=== PATIENT | male | born 1965 | race Caucasian/White ===

== ENCOUNTER 2016-12-08 00:38 | Inpatient (IN) | payer OTHER ==
[~2016-12-08] VITALS: Ht 180.3 cm; Wt 103.1 kg
[~2016-12-08 00:38] MED LIST: AUGMENTIN 875 M1 TAB PO; AUGMENTIN 875-1 EACH PO; CIPRO 500MG TA500 MG PO; FLEXERIL10 MG PO; FUROSEMIDE20 MG PO; GABAPENTIN300 MG PO; LEXAPRO5 MG PO; NAPROXEN500 MG PO; PANTOPRAZOLE SO40 MG PO; PERCOCET 325 MG1 TA2 PO; PYRIDIUM200 MG PO; SEROQUEL (MONO200 MG PO; SEROQUEL 100MG100 MG PO; SEROQUEL 25MG T25 MG PO; TRAZODONE100 MG PO; TRAZODONE50 MG PO; WELLBUTRIN XL300 MG PO
--- NOTE | 2016-12-08 00:39 | NUR ---
PT BIBA S/P "DRINKING AND TAKING A BUNCH OF PILLS". PER EMS PT ADMITS TO TAKING 20-30 TRAZADONE AND LITHIUM, WELL DRINKING ALCOHOL TONIGHT. PT CALLED [address] H[address] AND PD WAS THEN CALLED. PT ARRIVES CONFUSED, SLURRED SPEECH, ABLE TO FOLLOW COMMANDS APPROPRIATELY.
--- NOTE | 2016-12-08 00:40 | NUR ---
PT PLACED ON JOINT SPECIAL OPERATIONS, NSR. PT O2 SAT ON ROOM AIR 89%. PLACED ON 2L UP TO 94%.
--- NOTE | 2016-12-08 00:42 | NUR ---
SECURITY AT BEDSIDE FOR WANDING
--- NOTE | 2016-12-08 00:58 | ED PSYCHIATRIC COMPLAINT ---
History of Present Illness General Chief Complaint: ETOH/Drug Related Complaint Stated Complaint: BIBA FOR OD, SI ATTEMPT Source: patient, EMS Exam Limitations: clinical condition Vital Signs & Intake/Output Vital Signs & Intake/Output Vital Signs Date Time Temp Pulse Resp B/P B/P Pulse O2 O2 Flow FiO2 Mean Ox Delivery Rate 12/08 925 96.8 97 18 122/64 94 Room Air 12/08 0654 97.6 87 18 120/73 93 Room Air 12/08 0434 94 16 129/79 95 Nasal 2.0L Cannula 12/08 0318 97 18 115/63 95 Nasal 2.0L Cannula 12/08 0131 94 Nasal 2.0L Cannula 12/08 0039 96.9 98 16 122/75 96 Room Air Allergies Coded Allergies: NO KNOWN ALLERGIES (02/06/14) Reconcile Medications Amoxicillin/Potassium Clav (Augmentin 875-125 Tablet) 1 EACH TABLET 1 TAB PO BID PRN cellulitis AMOXICILLIN/POTASSIUM CLAV (Augmentin 875-125 Tablet) 875 MG/125 MG TAB 1 TAB PO BID Cellulitis Escitalopram Oxalate (Lexapro) 5 MG TAB 1 TAB PO DAILY Mental health Furosemide 20 MG TAB 1 TAB PO DAILY WATER RETENTION (Reported) Gabapentin 300 MG CAPSULE 2 CAP PO TID PAIN CONTROL (Reported) Naproxen 500 MG TAB 1 TAB PO BID PAIN (Reported) OXYCODONE HCL/ACETAMINOPHEN (Percocet 5-325 MG Tablet) 325 MG/5 MG TAB 1 TAB PO Q8 PRN PAIN SCALE 5-10 Pantoprazole Sodium 40 MG TABLET.DR 1 TAB PO DAILY ACID REFLUX (Reported) Quetiapine Fumarate (Seroquel) 25 MG TAB 1 TAB PO 0900,1700 MENTAL HEALTH Quetiapine Fumarate (Seroquel) 100 MG TAB 1 TAB PO AT BEDTIME Mental health TRAZODONE HCL (Trazodone HCl) 50 MG TAB 1 TAB PO AT BEDTIME Insomnia Triage Nurses Notes Reviewed? yes Onset: Abrupt Duration: unknown duration Timing: single episode today Severity: moderate, severe Associated Symptoms: anxiety, suicidal ideation HPI: 51 year old male presents via EMS for overdose on trazadone, lithium, alcohol. He took a few percocets in an attempt to kill himself. He states he was talking to 211 about how he was feeling and then EMS showed up. History of previous suicide attmpt in the past. (LEIF DERAS MD) Past History Travel History Traveled to [place] past 21 day No Medical History Any Pertinent Medical History? 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 No (LEIF DERAS MD) Review of Systems Review of Systems Constitutional: Reports: see HPI (LIMITED PER CONDITION). EENTM: Reports: no symptoms. Respiratory: Reports: no symptoms. Cardiovascular: Reports: no symptoms. GI: Reports: no symptoms. Genitourinary: Reports: no symptoms. Musculoskeletal: Reports: no symptoms. Skin: Reports: no symptoms. Neurological/Psychological: Reports: depressed, emotional problems. Hematologic/Endocrine: Reports: no symptoms. Immunologic/Allergic: Reports: no symptoms. All Other Systems: Reviewed and Negative (LEIF DERAS MD) Physical Exam Physical Exam General Appearance: well developed/nourished, mild distress, intoxicated Head: atraumatic Eyes: Bilateral: PERRL, EOMI. Ears, Nose, Throat: normal pharynx, normal ENT inspection, hearing grossly normal Neck: normal inspection, supple Respiratory: normal breath sounds Cardiovascular: regular rate/rhythm Gastrointestinal: soft, non-tender Extremities: normal range of motion Neurological/Psychiatric: no motor/sensory deficits, LETHARGIC Appearance/Memory/Insight: disheveled, impaired insight Behavoir/Eye Contact/Speech: decreased rate of speech Thoughts/Hallucinations: no apparent hallucination Skin: intact, normal color, warm/dry SAD PERSONS SAD PERSONS Response Value Male Sex? yes 1 Age <19 or >45 years? yes 1 Depression/Hopelessness? yes 2 Previous Attempts/Psych Care yes 1 Excessive Ethanol/Drug Use? yes 1 Rational Thinking Loss? yes 2 Organized/Serious Attempt yes 2 Social Support? has no support 1 Total 11 SAD PERSONS Done? yes (LEIF DERAS MD) Progress Differential Diagnosis: DEPRESSION, ANXIETY, OVERDOSE, SUICIDE ATTEMPT Plan of Care: Orders Procedure Date/time Status Regular Diet 12/08 L Active Regular Diet 12/08 B Complete Admit to inpatient psych 12/08 1112 Active ED CRISIS PSYCH CONSULT 12/08 0142 Active Add-on Test (ER Only) 12/08 137 Active Add-on Test (ER Only) 12/08 132 Active ACETOMINOPHEN 12/09 127 Complete SALICYLATE 12/09 127 Complete LITHIUM 12/09 127 Complete Continuous Observation Monitor 12/08 57 Active URINE DRUGS OF ABUSE 12/08 57 Complete ETHANOL 12/08 57 Complete COMPREHENSIVE METABOLIC PANEL 12/08 57 Complete CBC WITHOUT DIFFERENTIAL 12/08 57 Complete EKG 12/08 57 Active Laboratory Tests 12/08/16127: Urine Opiates Screen < 100.00, Methadone Screen < 40, Barbiturate Screen < 60, Ur Phencyclidine Scrn < 6.00, Amphetamines Screen < 100, U Benzodiazepines Scrn < 85, Urine Cocaine Screen < 50, Urine Cannabis Screen 15.40 12/08/16 012: Anion Gap 18 H, Estimated GFR > 60, BUN/Creatinine Ratio 10.0, Glucose 128 H, Calcium 8.9, Total Bilirubin 0.3, AST 37, ALT 40, Alkaline Phosphatase 79, Total Protein 6.5, Albumin 4.3, Globulin 2.2, Albumin/Globulin Ratio 2.0, CBC w Diff NO MAN DIFF REQ, RBC 5.03, MCV 87.0, MCH 29.3, RDW 14.4, MPV 8.6, Gran % 64.4, Lymphocytes % 24.9, Monocytes % 6.9, Eosinophils % 2.8, Basophils % 1.0, Absolute Granulocytes 5.9, Absolute Lymphocytes 2.3, Absolute Monocytes 0.6, Absolute Eosinophils 0.3, Absolute Basophils 0.1, PUBS MCHC 33.7, Salicylates < 1.0, Acetaminophen < 10.0 L, [place] < 0.2 L, Serum Alcohol 254.0 Initial ED EKG: NSR, PVC Hand-Off Endorsed To: ZACH LOWE,PAOLA Cho Endorsed Time: 07 Pending: consult (CRISIS) (LEIF DERAS MD) Departure Departure Disposition: STILL A PATIENT Condition: Stable Clinical Impression Primary Impression: Suicide attempt Secondary Impressions: Overdose Referrals: RHINA LOWE,WU (PCP/Family) Departure Forms: Customer Survey General Discharge Information (BRAEDEN LOWE,LEIF) Psych Admission Note Psychiatric Admission: I have seen and evaluated DEMETRIS AUGUSTIN. I have also reviewed all the pertinent lab results and diagnostic results. DEMETRIS AUGUSTIN will be admitted to our inpatient Psychiatric unit for treatment and care. (ZACH LOWE,PAOLA Cho)
--- NOTE | 2016-12-08 01:20 | NUR ---
EKG IN PROGRESS
--- NOTE | 2016-12-08 01:30 | NUR ---
BLOOD OBTAINED AND SENT TO LAB -SST,LAV,BLUE URINE TRIO OBTAINED AND SENT TO LAB
[2016-12-08 01:38] LABS: ABSOLUTE BASOPHIL COUNT 0.1 /CUMM (0.0-0.2); ABSOLUTE EOSINOPHIL COUNT 0.3 /CUMM (0.0-0.7); ABSOLUTE GRANULOCYTE CT 5.9 /CUMM (1.4-6.5); ABSOLUTE LYMPH COUNT 2.3 /CUMM (1.2-3.4); ABSOLUTE MONOCYTE COUNT 0.6 /CUMM (0.10-0.60); EOSINOPHIL % 2.8 % (0-5); GRANULOCYTE % 64.4 % (42.2-75.2); HEMATOCRIT 43.8 % (42-52); MEAN CORPUSCULAR HGB 29.3 PG (27.0-31.0); MEAN CORPUSCULAR HGB CONC 33.7 G/DL (33.0-37.0); MEAN PLATELET VOLUME 8.6 FL (7.4-10.4); PLATELET COUNT 299 /CUMM (130-400); RBC DISTRIBUTION WIDTH 14.4 % (11.5-14.5); RED BLOOD CELL CT 5.03 /CUMM (4.70-6.10); WHITE BLOOD CELL COUNT 9.2 /CUMM (4.8-10.8)
--- NOTE | 2016-12-08 01:38 | NUR ---
PT MEDICATED WITH 0.4MG NARCAN PER EMAR
--- NOTE | 2016-12-08 02:15 | NUR ---
PT MEDICATED WITH NS INFUSING PER EMAR
[2016-12-08 02:17] LABS: LITHIUM < 0.2 mmol/L (0.6-1.2)
--- NOTE | 2016-12-08 05:00 | NUR ---
PT CHANGED INTO GOWN DUE TO NO SCRUB BOTTOMS BEING AVAILABLE AT THIS TIME.
--- NOTE | 2016-12-08 05:22 | NUR ---
PT REMAINS ASLEEP AT THIS TIME W/RR NOTED. SITTER IN ATTENDANCE. WILL CTM.
--- NOTE | 2016-12-08 07:40 | NUR ---
PT SLEEPING ON STRETCHER IN HALLWAY. SITTER IN ATTENDANCE.
--- NOTE | 2016-12-08 08:33 | NUR ---
PT SLEEPING, REG RR NOTED SITTER IN ATTENDANCE.
--- NOTE | 2016-12-08 11:40 | NUR ---
RECEIVED REPORT ON PT AND NOTED TO BE RESTING ON STRETCHER AND OFFERED LUNCH WHICH PT IS EATING AT PRESENT. PT DENIES ANY COMPLAINTS AT PRESENT AND INFORMED OF POC.
--- NOTE | 2016-12-08 11:57 | NUR ---
PT IS BEEN EVALUATED BY CLASSROOM PARAPROFESSIONAL
--- NOTE | 2016-12-08 14:02 | ED PSYCH CRISIS CONSULTATION ---
Crisis Consult Basic Assessment Date of Consult: 12/08/16 Responsible Person/Accompanied By: Self Insurance Authorization: Insurance #1: Insurance name: ASA HUMPHREY Phone number: Policy number: [id number] Group number: Authorization number: [id number] Pended Auth [id number] Requested from 12/08/16 ED Provider: Patient's ED Provider: BRAEDEN LOWE,LEIF Primary Care Physician: Patient's PCP: WU LANTIGUA MD PCP's Current Psychiatrist: Unknown Chief Complaint: Psychiatric complaint Patient's Quote: "I felt I might as well kill myself." Present Illness: 51 M presents via EMS for overdose on trazodone, lithium and alcohol; "also a few percocets." He presented at 0039 on 12/08/16. He reports he took 20-30 pills early in the evening, but does not recall how many of each. He had lithium from an old prescription and no longer has this prescribed. His lithium urine toxicology shows 0.2 on 12/08/16 at 0128. The patient reports that his "demon" was telling him to kill himself, and the only way to quiet the demon is it kill himself. He has been feeling despondent about his living arrangement, living in his niece's garage. The patient has a long history of suicide attempts beginning at age 16, when he was hospitalized at [facility] by his parents. Alcohol use disorder in remission for 3 months, but reports that he began drinking 3 days ago. He admits to cannabis use. Remote history of cocaine and inhaled heroin use, both in remission. The patient had recently had a change in antipsychotic to Rexulti, but did not start it yet. He has been off his medications, not taking them as ordered. He reports that he is a "stockpiler of meds; I have hundreds of Seroquel at home." This medication had been stopped previously by his provider. He reports he had been writing a journal, which he admits has suicidal statements in it. He is homeless, and has been working with [facility], at [address] [place] [id number]; , for housing and job placement. His vocational specialist at [facility], cancelled the appointment scheduled for today, 12/08/16. He is estranged from his three surviving children, his father and his sister. Med claim history includes: As of 11/23/16, from Adolfo Yin at [facility] trazodone 150 mg PO at bedtime benztropine 1 mg PO daily Rexulti 1 mg PO daily for 7 days, then 2 mg PO daily hydroxyzine pamoate 50 mg #90 for 30 days bupropion XL 150 mg PO #90 for 30 days He also has Flexeril, nicotine patch, gabapentin 300 mg PO up to 3X/day from his PCP, Dr. Lantigua. Collateral call to his sister, Claribel; VM left, expect a return call. Collateral call to the patient's casemanager at [facility], Thomas Fried, [phone], who was advised that the patient has a large collection of discontinued medications in the garage where he stays. Mr. Fried will get mobile crisis team involved when discharge from [facility] is near. Patient's Address: Sister's address; the patient does not live here. [address] [place] [id number] Other Phone Number: Who Do You Live With? Other (see notes) Family/Informants Interviewed: Patient refuses to give the phone number of his niece, whose garage he lives in. TC placed to his sister, Claribel Baum, . M on blind mailbox, and requested a return call to Crisis. Allergies - Coded Allergies: NO KNOWN ALLERGIES (02/06/14) Current Medications - Scheduled Medications AMOXICILLIN/POTASSIUM CLAV (Augmentin 875-125 Tablet) 875 MG/125 MG TAB 1 TAB PO BID Cellulitis #14 TAB Prescribed by SANDRINE PATRICK on 06/20/15 Escitalopram Oxalate (Lexapro) 5 MG TAB 1 TAB PO DAILY Mental health #7 TAB Prescribed by SANDRINE PATRICK on 06/20/15 Furosemide 20 MG TAB 1 TAB PO DAILY WATER RETENTION (Reported) Entered as Reported by CARISSA TRACY on 06/17/15 1606 Last Taken: At an unknown date and time Gabapentin 300 MG CAPSULE 2 CAP PO TID PAIN CONTROL #180 (Reported) Entered as Reported by LIZZ MASTERS on 02/05/140 Last Taken: At an unknown date and time Naproxen 500 MG TAB 1 TAB PO BID PAIN (Reported) Entered as Reported by CARISSA TRACY on 06/17/15 1605 Last Taken: At an unknown date and time Pantoprazole Sodium 40 MG TABLET.DR 1 TAB PO DAILY ACID REFLUX #30 (Reported) Entered as Reported by LIZZ MASTERS on 02/05/142138 Last Taken: At an unknown date and time Quetiapine Fumarate (Seroquel) 25 MG TAB 1 TAB PO 0900,1700 MENTAL HEALTH #14 TAB Prescribed by SANDRINE PATRICK on 06/20/15 Quetiapine Fumarate (Seroquel) 100 MG TAB 1 TAB PO AT BEDTIME Mental health #7 TAB Prescribed by SANDRINE PATRICK on 06/20/15 TRAZODONE HCL (Trazodone HCl) 50 MG TAB 1 TAB PO AT BEDTIME Insomnia #7 TAB Prescribed by SANDRINE PATRICK on 06/20/15 Scheduled PRN Medications Amoxicillin/Potassium Clav (Augmentin 875-125 Tablet) 1 EACH TABLET 1 TAB PO BID PRN cellulitis #20 TAB Prescribed by DARLIN SOLORZANO on 10/23/15 OXYCODONE HCL/ACETAMINOPHEN (Percocet 5-325 MG Tablet) 325 MG/5 MG TAB 1 TAB PO Q8 PRN PAIN SCALE 5-10 #20 TAB Prescribed by SANDRINE PATRICK on 06/20/15 Laboratory Results: Laboratory Tests 12/08/16127: Urine Opiates Screen < 100.00, Methadone Screen < 40, Barbiturate Screen < 60, Ur Phencyclidine Scrn < 6.00, Amphetamines Screen < 100, U Benzodiazepines Scrn < 85, Urine Cocaine Screen < 50, Urine Cannabis Screen 15.40 12/08/16127: Anion Gap 18 H, Estimated GFR > 60, BUN/Creatinine Ratio 10.0, Glucose 128 H, Calcium 8.9, Total Bilirubin 0.3, AST 37, ALT 40, Alkaline Phosphatase 79, Total Protein 6.5, Albumin 4.3, Globulin 2.2, Albumin/Globulin Ratio 2.0, CBC w Diff NO MAN DIFF REQ, RBC 5.03, MCV 87.0, MCH 29.3, RDW 14.4, MPV 8.6, Gran % 64.4, Lymphocytes % 24.9, Monocytes % 6.9, Eosinophils % 2.8, Basophils % 1.0, Absolute Granulocytes 5.9, Absolute Lymphocytes 2.3, Absolute Monocytes 0.6, Absolute Eosinophils 0.3, Absolute Basophils 0.1, PUBS MCHC 33.7, Salicylates < 1.0, Acetaminophen < 10.0 L, [place] < 0.2 L, Serum Alcohol 254.0 Past History Past Medical History Neurological: "SHORT TERM MEMORY FROM HEAD INJURIES IN PAST" EENT: NONE Cardiovascular: NONE Respiratory: pneumonia Gastrointestinal: HERNIA Hepatic: NONE Renal: NONE Musculoskeletal: NONE Psychiatric: alcohol dependence, anxiety, bipolar disease, substance abuse, SUICIDE ATTEMPTS psychotic disorder NOS Endocrine: NONE Blood Disorders: NONE Cancer(s): NONE 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 Outpatient at [facility]. 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 How much used/taken Over 3 days, one 12 packof beer and 4 Locos (23 oz of 12% malt liquor each) How often Sober for 3 months before 3 days ago Substance Abuse Treatment Substance Abuse Treatment Past Substance Abuse [place] Yes Inpatient Treatment No (Does not remember) Outpatient Treatment Yes Location of Treatment [facility] Current Mental Status Mental Status Orientation: Person, Place, Situation Affect: Depressed, Flat, Hopeless, Lonely, Sad Speech: Slurred, Soft Neuro-vegetative: Anhedonia, Appetite Decreased, Concentration Poor, Energy Decreased, Helpless, Loss of Interest, Sexual Interest Decreased, Sleep Disturbance Appearance Appearance- Dress/Hygiene: Disheveled Behaviors Thought Process: Disorganized, Flight of Ideas, Loose Association Thought Content: Auditory Hallucinations, Ideas of Reference, Paranoid, Thought Blocking Memory: Impaired Insight: Poor SI/HI Risk Assessment Past Suicidal Ideation/Attempts Yes Current Suicidal Ideation/Att Yes Past Homicidal Ideation/Att: No Current Homicidal Ideation/Attempts No Degree of Intent: States Intent Danger To: Self Gravely Disabled: Inability, Lack of Insight, Poor Impulse Control, Poor Judgment Risk Factors: history of suicide atmpts, SA/MH hospitalized, substance abuse, poor impulse control, lack of outcome concern, lives alone, male, limited support Lethality Ratin PTSD Checklist PTSD Score: PTSD Score: Response Value Disturbing memories,thoughts,images of stressful experience? Moderately 3 Disturbing dreams of stressful experience from past? Quite a bit 4 Suddenly acting/feeling as if reliving stressful experience? Quite a bit 4 Unpleasant feeling when reminded of stressful experience? Moderately 3 Physical reactions when reminded of stressful experience? Quite a bit 4 Avoid thinking/talking of stressful exp. to avoid reactions? Extremely 5 Avoid activities/situations that remind of stressful exp.? Moderately 3 Trouble remembering important parts of stressful experience? Not at all 1 Loss of interest in things that you used to enjoy? Extremely 5 Feeling distant or cut off from other people? Extremely 5 Feeling emotionally numb/unable to love those close to you? Extremely 5 Feeling as if your future will somehow be cut short? Not at all 1 Trouble falling or staying asleep? Quite a bit 4 Feeling irritable or having angry outbursts? Moderately 3 Having difficulty concentrating? Moderately 3 Being super alert or watchful on guard? A little bit 2 Feeling jumpy or easily startled? 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 He has a history of suicide attempts. He is psychotic. Type of IP Admission: Voluntary [facility] Referrals RHINA LOWE,WU (PCP/Family)
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
[2016-12-08 19:50] VITALS: BP 168/98
--- NOTE | 2016-12-08 21:08 | NUR ---
Patient admitted to CPS from ED. Patient alert and oriented to person, place, time and situation. Patient speech clear and coherent. Patient has contracted for safety while on the unit. Patient does report AH at times, currently does NOT endorse SI. Patient recounts of events leading to admission was very disorganized and pressured. Patient reports multiple history of attempting suicide. PAtient is currently homeless, unsure of housing upon discharge. Patient also reports a "stash" of medication in home unspecific of to where. Patient reports taking excessive does of trazodone, and no report of lithium use. Looking forward to assisting Nabil with mental health.
[2016-12-09] VITALS (9 sets, daily range): BP systolic 144–152; BP diastolic 85–96
[2016-12-09] MEDS ORDERED: REXULTI2 M1 PO (08:34)
[2016-12-09] MEDS ORDERED: WELLBUTRIN XL150 M2 PO (08:35)
[2016-12-09] MEDS ORDERED: VISTARIL50 M1 PO (08:36)
[2016-12-09] MEDS ORDERED: BENZTROPINE MESY1 M1 PO (08:38)
[2016-12-09] MEDS ORDERED: NICOTINE PATCH1 EAC3 (08:39)
--- NOTE | 2016-12-09 10:34 | Cons- Medical ---
General Information and HPI Consulting Request Date of Consult: 12/09/16 Requested By: DELMY LOWE,RENITA Norwood Reason for Consult: Medical H&P Source of Information: patient, old records Exam Limitations: no limitations History of Present Illness: 51 year old male with PMH Etoh abuse and depression is here with acute suicidality and depression. Patient states that he has been diagnosed with hypertension on and off but doesn't take any medicines regularly and was also told he has borderline diabetes. He says that he has chronic back pain and Dr. Espinoza has been giving him naproxen for this chronic back pain. He also says he has GERD and takes medications for the same. He says right now the only tissue that bothers him is the chronic back pain. All his psychiatric medications make him feel constipated. He denies chest pain, shortness of breath, cough, sputum. Allergies/Medications Allergies: Uncoded Allergies: Vinegar (Rash 12/08/16) Home Med List: Amoxicillin/Potassium Clav (Augmentin 875-125 Tablet) 1 EACH TABLET 1 TAB PO BID PRN cellulitis AMOXICILLIN/POTASSIUM CLAV (Augmentin 875-125 Tablet) 875 MG/125 MG TAB 1 TAB PO BID Cellulitis Benztropine Mesylate 1 MG TABLET 1 MG PO DAILY MENTAL HEALTH (Reported) Brexpiprazole (Rexulti) 2 MG TABLET 1 TAB PO DAILY MENTAL HEALTH (Reported) Bupropion HCl (Wellbutrin XL) 150 MG TAB.ER.24H 450 MG PO DAILY MENTAL HEALTH (Reported) Escitalopram Oxalate (Lexapro) 5 MG TAB 1 TAB PO DAILY Mental health Furosemide 20 MG TAB 1 TAB PO DAILY WATER RETENTION (Reported) Gabapentin 300 MG CAPSULE 2 CAP PO TID PAIN CONTROL (Reported) Hydroxyzine Pamoate (Vistaril) 50 MG CAPSULE 50 MG PO PRN ANXIETY (Reported) Naproxen 500 MG TAB 1 TAB PO BID PAIN (Reported) Nicotine (Nicotine Patch) 21 MG/24 HOUR PATCH.TD24 SMOKING CESSATION (Reported) OXYCODONE HCL/ACETAMINOPHEN (Percocet 5-325 MG Tablet) 325 MG/5 MG TAB 1 TAB PO Q8 PRN PAIN SCALE 5-10 Pantoprazole Sodium 40 MG TABLET.DR 1 TAB PO DAILY ACID REFLUX (Reported) Quetiapine Fumarate (Seroquel) 25 MG TAB 1 TAB PO 0900,1700 MENTAL HEALTH Quetiapine Fumarate (Seroquel) 100 MG TAB 1 TAB PO AT BEDTIME Mental health TRAZODONE HCL (Trazodone HCl) 50 MG TAB 1 TAB PO AT BEDTIME Insomnia Current Medications: Current Medications Sig/George Start time Last Medication Dose Route Stop Time Status Admin Folic Acid 1 MG 12/09 AC PO 12/11 800 Gabapentin 600 MG Q4P PRN 12/08 1914 AC PO Lorazepam 1 MG Q4P PRN 12/08 1914 AC PO Lorazepam 1.5 MG Q4P PRN 12/08 1914 AC PO Multivitamins 1 TAB 12/09 AC PO Nicotine 21 MG DAILY 12/09 1000 AC TOP Olanzapine 5 MG 12/08 AC 12/08 PO 2224 Olanzapine 2.5 MG Q3P PRN 12/08 1914 AC PO Omeprazole 40 MG DAILY AC 12/09 0845 AC PO Ondansetron HCl 4 MG ONCE ONE 12/08 1130 DC 12/08 PO 12/08 1131 1119 Ondansetron HCl 0 .STK-MED ONE 12/08 1051 DC PO Thiamine HCl 100 MG 12/09 AC PO 12/11 800 Review of Systems Review of Systems Constitutional: Denies: no symptoms, see HPI, chills, diaphoresis, fever, malaise, weakness, unexplained weight loss. Cardiovascular: Denies: no symptoms, chest pain, edema. Respiratory: Denies: no symptoms, cough, hemoptysis. GI: Reports: no symptoms, bloating, constipation. Genitourinary: Denies: no symptoms, discharge, dysuria. 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 He says that he smokes 2 packs a day, drinks alcohol and that's what's gotten into trouble and has smoked marijuana occasionally. Denies any illicit drug use. Functional Ability ADLs Independent: dressing, eating, toileting, bathing. Ambulation: cane IADLs Independent: shopping, housework, finances, food prep, telephone, transportation , medication admin. 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 Exam & Diagnostic Data Last 24 Hrs of Vital Signs/I&O Vital Signs Date Time Temp Pulse Resp B/P B/P Pulse O2 O2 Flow FiO2 Mean Ox Delivery Rate 12/09 0846 97.1 87 152/85 12/09 0756 97.1 87 152/85 12/08 1950 98.6 104 168/98 12/08 1151 97.1 104 20 139/81 93 Room Air Intake & Output 12/09 1600 12/09 0800 12/09 0000 Intake Total Output Total Balance Patient 227 lb Weight Physical Exam General Appearance: well developed/nourished, no apparent distress, alert, awake Eyes: Bilateral: normal appearance, PERRL, EOMI. Ears, Nose, Throat: normal pharynx, normal ENT inspection Neck: normal inspection, supple, full range of motion Respiratory: normal breath sounds, chest non-tender, no respiratory distress Cardiovascular: regular rate/rhythm Gastrointestinal: normal bowel sounds, soft, non-tender, no organomegaly Back: normal inspection, normal range of motion Skin: intact (Scars ob both LE from previou ) Other Physical Findings: multiple scabs over his lower extremities which he attributes to a previous episode of cellulitis. Not appear acutely red inflamed or tender. Last 24 Hrs of Labs/Amrik: Laboratory Tests 12/08/16127: Urine Opiates Screen < 100.00, Methadone Screen < 40, Barbiturate Screen < 60, Ur Phencyclidine Scrn < 6.00, Amphetamines Screen < 100, U Benzodiazepines Scrn < 85, Urine Cocaine Screen < 50, Urine Cannabis Screen 15.40 12/08/16127: Anion Gap 18 H, Estimated GFR > 60, BUN/Creatinine Ratio 10.0, Glucose 128 H, Calcium 8.9, Total Bilirubin 0.3, AST 37, ALT 40, Alkaline Phosphatase 79, Total Protein 6.5, Albumin 4.3, Globulin 2.2, Albumin/Globulin Ratio 2.0, CBC w Diff NO MAN DIFF REQ, RBC 5.03, MCV 87.0, MCH 29.3, RDW 14.4, MPV 8.6, Gran % 64.4, Lymphocytes % 24.9, Monocytes % 6.9, Eosinophils % 2.8, Basophils % 1.0, Absolute Granulocytes 5.9, Absolute Lymphocytes 2.3, Absolute Monocytes 0.6, Absolute Eosinophils 0.3, Absolute Basophils 0.1, PUBS MCHC 33.7, Salicylates < 1.0, Acetaminophen < 10.0 L, [place] < 0.2 L, Serum Alcohol 254.0 Assessment/Plan Assessment/Plan 51-year-old male with a history of borderline diabetes, hypertension, chronic back pain on an NSAID and GERD who is here with acute suicidality, depressive symptoms and alcohol abuse. At this point will treat as per psychiatry. He is requesting his Protonix and naproxen to be restarted. He's also requesting a tobacco patch and senna S twice a day which I will order. We need to watch his pressure closely. He says he has been told he has hypertension but then didn't take any meds. At this point if his borderline pressure is not attributed to alcohol then he would probably benefit from an antihypertensive. Problem List: 1. Psychiatric disorder 2. Tobacco dependence 3. Suicide attempt Consult Acknowledgment - Thank you for your consult request.
--- NOTE | 2016-12-09 13:48 | NUR ---
PT IS COMPLIANT AND COOPERATIVE. MOOD IS STABLE WITH A CONSTRICTED AFFECT. PT DENIES SI AT THIS TIME, NO COMPLAINTS OFFERED. NO S/S OF DETOX NOTED OR REPORTED- NO SCORING ON CIWA. NO AH NOTED OR REPORTED. PT IS PRESENT ON THE UNIT AND INTERACTING WELL WITH PEERS AND STAFF. PT IS ATTENDING GROUPS. VITALS ARE STABLE, APPETITE IS GOOD.
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
--- NOTE | 2016-12-09 19:11 | SOCIAL WORKER PROG NOTE PSYCH ---
Social Work Progress Note Progress Note 6:25pm This mortgage or loan underwriter met with pt. Patient appeared to struggle with responses to questions, often times changing topic from the original question. When asked about reason for current inpatient admissions, he stated that his mother in 2013 leading to alcohol use. He was unable to provide specifics regarding current alcohol use, however, stated that he relapsed on December 04, 2016. He also reported occassional MJ use, "about once every two weeks, 2-3 hits." Patient reported that he was brought to ED by police after speaking with the suicide hotline at 211 and being unsure if he could remain safe. Patient reported that his depression is "pretty bad," at a 10/10. When asked about SI, patient stated, "It's always in me. Right now I don't feel like hurting myself. " AH/VH: "every now and then I see shadows. I look at a wall and they start talking. They just move their mouths." He reported command AH telling him to "go get a drink, take a bunch of pills, go to a bridge, jump in the water. Then you'll definitely be done with." Pt denied AH at this time. He stated that he would inform staff should sx return/worsen and/or if he is feeling unsafe. He reported feeling safe on this unit. Pt complained of racing thoughts, making it challenging to engage in conversation or respond to questions. In addition to returning to [facility] where he has been receving treatment, he expressed interest in housing resources. This mortgage or loan underwriter will follow up with treatment team/Tammie Yousif APRN.
--- NOTE | 2016-12-09 21:39 | NUR ---
PT IS VISIBLE ON UNIT, MOSTLY STAYING TO HIMSELF BUT WILL SOCIALIZE WITH PEERS WHEN APPROACHED. COOPERATIVE AND COMPLIANT WITH STAFF. ATTENDED WRAP UP WHERE HE WAS HYPERVERBAL AND HARD TO REDIRECT BUT VERY COOPERATIVE. NO COMPLAINTS OR SI REPORTED. PT HAS A STABLE MOOD AND FLAT AFFECT.
[2016-12-10] VITALS (9 sets, daily range): BP systolic 138–161; BP diastolic 79–99
--- NOTE | 2016-12-10 11:28 | NUR ---
PT IS SLIGHTLY IRRITABLE TODAY. HE DENIED THOUGHTS OF SUICIDE OR SELF HARM AND WOULD LIKE TO SPEAK WITH HIS WIND TUNNEL MECHANIC ABOUT DISCHARGE PLANNING.HE IS COMPLIANT WITH HIS MED REGIME AND INTERACTS WITH STAFF AND PEERS APPROPRIATELY. DR ROMERO AWARE OF ELEVATED BLOOD PRESSURE AND ORDERS RECEIVED
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
--- NOTE | 2016-12-10 18:09 | NUR ---
PT IS CALM, COOPERATIVE WITH STAFF AND PEERS, AND COMPLAINT WITH UNIT RULES. OFTEN IN [place], INTERACTING WELL WITH OTHERS. MOOD IS STABLE, AFFECT APPEARS EUTHYMIC TO FULL RNAGE, COMMUNICATION IS ORGANIZED AND APPEARS NORMAL IN ALL RESPECTS, AND APPETITE IS NORMAL. PT DENIES SI AT THIS TIME.
--- NOTE | 2016-12-10 18:17 | SOCIAL WORKER PROG NOTE PSYCH ---
Social Work Progress Note Progress Note 11:35am This underwriter and Tammie Yousif APRN met with patient. Patient reported increased anxiety related to fears that his niece's children will tamper with or disturb his belongings which are currently stored in the garage where he lives; belongings include a survival kit which stores a fishing knife, clothes and "personal effects that belonged to my mother." Pt stated that he utilizes the knife for fishing or cutting branches as he is homeless. He denied having any other weapons or guns. Patient stated that he has been unable to reach his niece by phone. He agreed to sign a JOAN in order for this underwriter/Tammie Yousif APRN to attempt to reach his niece on his behalf to clarify living arrangements and inquired about his belongings. 5pm This underwriter contacted the patient's niece, Divine Chacko, by phone. She shared that he has been living with her for the past two years since his mother . She stated that he would not be able to return to her home following discharge. She stated that she will allow his belongings to remain in her garage and that she will return them to her when he has found a place to live/stay. She stated that there are no concerns about his belongings being touched, disturbed or tampered with by her children or anyone else. Ms. Chacko also reported that her son is currently in the hospital and patient may contact her by phone, however, her time may be limited. This underwriter relayed the information to the patient, which he stated that he understood. Patient appeared to be agreeable in working with the treatment team to identify alternate living arrangements upon discharge.
[2016-12-11] VITALS (7 sets, daily range): BP systolic 133–155; BP diastolic 69–86
--- NOTE | 2016-12-11 07:07 | NUR ---
PATIENT UP TO BR X1, SIGNIFICANT GAS, OTHERWISE SLEPT ALL NIGHT.
--- NOTE | 2016-12-11 14:13 | NUR ---
PT HAS BEEN PRESENT WITHIN THE COMMUNITY FOR A MAJORITY OF THE DAY THUS FAR, IS ABLE TO MAKE NEEDS KNOWN TO STAFF, MEDICATION COMPLIANT, SOCIAL WITH PEERS AND APPROPRIATE WITH STAFF. ATTENDED PLANNING MEETING AND REPORTED POOR SLEEP AND GOAL WAS "TO TAKE MEDS AND GO BACK TO SLEEP". OVERALL IS CALM, RESPECTFUL AND COOPERATIVE TO UNIT REGS.
--- NOTE | 2016-12-11 19:15 | NUR ---
PT HAS A SLIGHTLY APATHETIC FEEL IN HIS ATTITUDE AND REPORTED THAT HE "DOESNT HAVE CONTROL OVER ALOT OF THINGS, ESPECIALLY HERE". HE HAS BEEN SOCIAL WITH STAFF AND PRESENT IN THE [place]. PT HAS BEEN COOPERATIVE WITH UNIT RULES AND STAFF DIRECTION. PT DENIES ANY THOUGHTS OF SI WHEN ASKED BY THIS MHW.
--- NOTE | 2016-12-11 23:49 | CP SOUTH PROGRESS NOTE PSYCH ---
Psych (Inpt) Progress Note Progress Note Progress Note: SUBJECTIVE: Pt reports feeling "ok" but continues to have SI ("not a day goes by I dont think about it some"). Pt requested simethacone earlier for bad gas pains, also reports diarrhea. Pt has been taking senokot prns, agreed with d/c' ing until diarrhea passes. Requested prep H, ordered. Tolerating prazosin and increase in zyprexa. Denies HI/SIB, but continues to have a "demon" that he can "feel its shadow around me." Pt reports increased sweating, but does not attribute to EtOH withdrawal, feels that he is doing fine with detox. Worried about his belongings and housing, discussed difficult relationship he has with his niece. Denies s/e to meds, abnormal movements. OBJECTIVE: Per nursing, pt slept well overnight. Adherent with meds and staff instructions, in behavioral control. Visible on the unit. A bit malodorous. MEDS: Current Medications Sig/George Start time Last Medication Dose Stop Time Status Admin Cyclobenzaprine HCl 10 MG BID PRN 12/10 1204 AC 12/11 (Flexeril 10MG Tab) 1909 Gabapentin 600 MG 0800,1400,12/10 1400 AC 12/11 (Neurontin) 203 Hydrochlorothiazide 12.5 MG DAILY 12/10 1034 AC 12/11 (Hydrodiuril) 0938 Lorazepam 1 MG Q4P PRN 12/08 1914 AC (Ativan) Lorazepam 1.5 MG Q4P PRN 12/08 191 AC (Ativan) Multivitamins 1 TAB 0812/09 0800 AC 12/10 (Theragran Vitamins) 0859 Naproxen 500 MG BID 12/09 2200 AC 12/11 (Naprosyn) 2228 Nicotine 21 MG DAILY 12/09 1000 AC 12/11 (Nicoderm) 0938 Olanzapine 12.5 MG 12/10 220 AC 12/11 (Zyprexa) 2229 Olanzapine 2.5 MG Q3P PRN 12/08 191 AC 12/11 (Zyprexa 2.5MG) 191 Omeprazole 20 MG DAILY AC 12/09 1539 AC 12/11 (Prilosec) 0728 Phenylephrine HCl 1 MARY BID PRN 12/11 2230 AC (Formulation R (HEMORRHOIDAL OINT) 30GM) Prazosin HCl 1 MG AT BEDTIME 12/10 2200 AC 12/11 (Minipress 1 MG) 2226 Simethicone 80 MG Q6P PRN 12/11 1230 AC 12/11 (Mylicon) 222 Trazodone HCl 100 MG AT BEDTIME NEED.. 12/10 1330 AC 12/11 (Desyrel) 2230 Vital Signs Date Time Temp Pulse Resp B/P B/P Pulse O2 O2 Flow FiO2 Mean Ox Delivery Rate 12/11 2226 100.8 92 20 148/77 12/11 2058 100.8 92 148/77 12/11 205 100.8 92 148/77 12/11 1625 92 133/69 12/11 1625 72 149/76 12/11 1624 97.9 98 155/86 12/11 1537 112 133/69 12/11 1202 72 149/76 12/11 0901 97.9 98 155/86 LABS: no labs in last 24 h MSE: GEN: Alert, oriented, gassy and malodorous but aware/embarassed, disheveled, good eye contact, well-related, NAD. SPEECH: moderate rate, volume, fluent MOTOR: no tics, tremor, stereotypy or abnormal movements MOOD: "OK" AFFECT: calm, congruent, mildly constricted range, nonlabile, well-related TP: logical, linear, goal-directed, but a bit talkative and pressured at end of interview TC: +passive SI without intent or plan, +AVH of "shadows of a demon", no HI/SIB , some delusional interpretation about the demon, no paranoia, grandiosity, obsessions, +ruminating on housing COG: no apparent deficits in memory, attention, concentration J/I: fair/fair A&P: 51 yo WM with MDD with psychosis, EtOH use disorder undergoing detox, doing reasonably well today but with some mild ssx withdrawal, lingering but more vague psychosis and passive SI. -cont meds above -maintain safety, vs tid, q15 min checks -d/c senokot d/t diarrhea, start prep H per pt request -cont ativan taper -cont plan/dispo as per primary team
[2016-12-12] VITALS (8 sets, daily range): BP systolic 121–148; BP diastolic 69–89
--- NOTE | 2016-12-12 06:15 | NUR ---
PT SELECTIVELY SOCIAL ON EVENINGS. PT SAW THE PSYCHIATRIST LATE. PT SLEPT.
--- NOTE | 2016-12-12 12:56 | NUR ---
PT IS PLEASANT, COOPERATIVE AND COMPLIANT, MOOD STABLE WITH FULL RANGE AFFECT, APPROPRIATE, OVERALL STABLE. MANUAL RECHECKS OF HR CONSISTENTLY ARE NOTED TO BE BELOW 100 AND NO OTHER OBJECTIVE SX OF ETOH WITHDRAW AND NO OVERT ISSUES OR COMPLIANTS RE: THAT WELL. PT IS APPROPRIATE, JOKING WITH STAFF, NO DISTRESS AND ENGAGING. ATTENDED ALL GROUPS TODAY, IN PLANNING REPORTED + SLEEP AND MOOD.
--- NOTE | 2016-12-12 18:56 | NUR ---
PT HAS APPEARED STABLE AND FULL RANGE. HE IS COOPERATIVE AND COMPLIANT WITH UNIT RULES. PT HAS NOT DISPLAYED ANY ABNORMALITIES BUT REPORTS FEELING ANXIOUS ABOUT DC PLAN AND THE UNKNOWN. PT HAS DENIED ANY THOUGHTS OF SI WHEN ASKED BY STAFF.
--- NOTE | 2016-12-12 19:25 | CP SOUTH PROGRESS NOTE PSYCH ---
See Addendum Psych (Inpt) Progress Note Progress Note Progress Note: SUBJECTIVE: Pt reports feeling better today, diarrhea resolved after stopping senokot. Pt with some passive SI, no HI/SIB but with continued thought of "my demon, my satan." Pt feels it is a little more distant today. 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 Pt c/o continued extremetiy cramping, encouraged hydration and increased flexaril to 10 mg tid per pt request. Pt continued to be concerned about dispo, but less focued on niece today. Denies s/e to meds, abnormal movements. OBJECTIVE: Per nursing, pt slept well overnight. Selectively social. Adherent with meds and staff instructions, in behavioral control. Increased HR 112 this am (prazosin rebound?). Current Medications Sig/George Start time Last Medication Dose Stop Time Status Admin [place] Butter/Shark 1 MARY BID PRN 12/12 0515 AC Liver Oil (Formulation R (TRADE NAME)) Simethicone 80 MG Q6P PRN 12/11 1230 AC 12/12 (Mylicon) 1500 Olanzapine 12.5 MG 12/10 2200 AC 12/11 (Zyprexa) 2229 Prazosin HCl 1 MG AT BEDTIME 12/10 2200 AC 12/11 (Minipress 1 MG) 2227 Gabapentin 600 MG 0800,1400,12/10 1400 AC 12/12 (Neurontin) 1500 Trazodone HCl 100 MG AT BEDTIME NEED.. 12/10 1330 AC 12/11 (Desyrel) 2230 Cyclobenzaprine HCl 10 MG BID PRN 12/10 1204 AC 12/12 (Flexeril 10MG Tab) 0857 Hydrochlorothiazide 12.5 MG DAILY 12/10 1034 AC 12/12 (Hydrodiuril) 0856 Naproxen 500 MG BID 12/09 2200 AC 12/12 (Naprosyn) 0856 Omeprazole 20 MG DAILY AC 12/09 1539 AC 12/12 (Prilosec) 0656 Nicotine 21 MG DAILY 12/09 1000 AC 12/12 (Nicoderm) 0856 Multivitamins 1 TAB 12/09 0800 AC 12/12 (Theragran Vitamins) 0856 Lorazepam 1 MG Q4P PRN 12/08 1914 AC (Ativan) Lorazepam 1.5 MG Q4P PRN 12/08 1914 AC (Ativan) Olanzapine 2.5 MG Q3P PRN 12/08 1914 AC 12/12 (Zyprexa 2.5MG) 1158 Vital Signs Date Time Temp Pulse Resp B/P B/P Pulse O2 O2 Flow FiO2 Mean Ox Delivery Rate 12/12 1530 98 121/69 12/12 1517 98 121/69 12/12 1249 98 12/12 1225 102 148/82 12/12 1219 102 148/82 12/12 0955 98 12/12 0833 104 138/70 12/12 0831 97.0 104 138/70 12/11 2227 100.8 92 20 148/77 12/11 2058 100.8 92 14877 12/12 2055 100.8 92 148 LABS: no labs in last 24 h MSE: GEN: Alert, oriented, disheveled, avoidant eye contact, rambling a bit, NAD. SPEECH: moderate rate, volume, fluent MOTOR: no tics, tremor, stereotypy or abnormal movements MOOD: "alright i guess" AFFECT: clingy, congruent, mildly constricted range, nonlabile TP: circumstantial TC: +passive SI without intent or plan, +AVH of "shadows of a demon", no HI/SIB , some delusional interpretation about the demon, no paranoia, grandiosity, obsessions COG: no apparent deficits in memory, attention, concentration J/I: fair/fair A&P: 51 yo WM with MDD with psychosis, EtOH use disorder undergoing detox, improving. Psychosis still present but appears less intense than yesterday, continued passive SI. May be having some rebound tachycardia in ams from prazosin vs withdrawal, monitor. -cont meds above -maintain safety, vs tid, q15 min checks -increasing flexaril to 10 mg tid for extremity cramps, encourage hydration -cont ativan taper -cont plan/dispo as per primary team, housing will need to be clarified
--- NOTE | 2016-12-12 23:34 | NUR ---
GOOD EVENING SPENT. ENGAGED AND INTERACTING WELL WITH PEERS.NO COMPLAINTS OFFERED. NO CIWA SCORING NOTED.
[2016-12-13] VITALS (8 sets, daily range): BP systolic 133–152; BP diastolic 79–90
--- NOTE | 2016-12-13 08:11 | CP SOUTH PROGRESS NOTE PSYCH ---
Psych (Inpt) Progress Note Progress Note Include the following elements, when applicable: Involvement in the active treatment of the patient with behavioral observations of the patient and the patient's response to the treatment. Review of the ongoing treatment process in the context of the treatment plan. Indication of how multi-disciplinary staff members are carrying out the treatment plan. Plans for future interventions and recommendations for revision of the treatment plan. Liaison with other physicians/providers. Progress Note: I discussed this patient's progress to date, current mental status, treatment process in the context of the treatment plan, and discharge planning with staff/ team in the daily morning inpatient team meeting. I also met with the patient myself in individual session. Current Medications Sig/George Start time Last Medication Dose Route Stop Time Status Admin [place] Butter/Shark 1 MARY BID PRN 12/12 0515 AC Liver Oil TOP Cyclobenzaprine HCl 10 MG TID PRN 12/13 1000 CAN PO Cyclobenzaprine HCl 10 MG TID PRN 12/12 1927 AC 12/12 PO 12/13 0959 2144 Cyclobenzaprine HCl 10 MG BID PRN 12/10 1204 DC 12/12 PO 0857 Gabapentin 600 MG 0800,1400,12/10 1400 AC 12/12 PO 2000 Hydrochlorothiazide 12.5 MG DAILY 12/10 1034 AC 12/12 PO 0856 Lorazepam 1 MG Q4P PRN 12/08 1915 AC PO Lorazepam 1.5 MG Q4P PRN 12/08 1915 AC PO Multivitamins 1 TAB 0800 12/09 0800 AC 12/12 PO 0856 Naproxen 500 MG BID 12/09 2200 AC 12/12 PO 2143 Nicotine 21 MG DAILY 12/09 1000 AC 12/12 TOP 0856 Olanzapine 15 MG 0 12/13 2200 UNVr PO Olanzapine 12.5 MG 2200 12/10 2200 DC 12/12 PO 2143 Olanzapine 2.5 MG Q3P PRN 12/08 1915 AC 12/12 PO 1158 Omeprazole 20 MG DAILY AC 12/09 1539 AC 12/13 PO 0647 Prazosin HCl 1 MG AT BEDTIME 12/10 2200 AC 12/12 PO 2143 Simethicone 80 MG Q6P PRN 12/11 1230 AC 12/12 PO 2210 Trazodone HCl 100 MG AT BEDTIME NEED.. 12/10 1330 AC 12/12 PO 2143 Vital Signs Date Time Temp Pulse Resp B/P B/P Pulse O2 O2 Flow FiO2 Mean Ox Delivery Rate 12/12 2142 96 145/89 12/12 2052 99.5 96 145/89 12/12 2030 99.5 96 145/89 12/12 1530 98 121/69 12/12 1517 98 121/69 12/12 1249 98 12/12 1225 102 148/82 12/12 1219 102 148/82 12/12 0955 98 12/12 0833 104 138/70 12/12 0831 97.0 104 138/70 A: Chart, progress notes, VS and medication list reviewed. Per nursing reports, the patient Met with patient at 8AM. He repoorts sleeping better, but continues to have sporadic "weird" dreams. Denies NMAs. Denies further gas pains/diarrhea which he experienced over the weekend. Reports some improvement in extermity cramping since increase in Flexeril from BID prn to TID prn. Denies talking to his niece this weekend, states "I chickened out." Remains concerned about his belongings and where he will discharge to, as he states he is not welcomed back there. States he learned this from a conversation that Divine Cameron LCSW, had with his niece on Tuesday. Patient denies SI and HI. Continues to report AH of "quiet conversations" and of "knocking underneath my bed." Denies command auditory hallucinations. Believes his demon is "knocking". Reports VH of shadows but only at night. Denies paranoia. Patient is now agreeable to [facility] referral and calling 211 to obtain a halfway intake. Describes energy level as "not bad." States appetite is "good." Speech normal in rate, tone and volume. Affect somewhat constricted. Mood, "ok." Fair eye contact. Less circumstantial, now answers questions more directly. Insight/judgement fair. Patient reports tolerating medications well; denies untoward effects or abnormal movements. Patient agreeable to increasing Zyprexa from 12.5mg QHS to 15mg QHS for AVH. P: -continue monitoring for safety, mood, psychosis. -increase Zyprexa from 12.5mg QHS to 15mg QHS for AVH. -refer to [facility] for temprary placement. -change Flexeril from TID prn to Q8H prn for muscle spasms. -continue all other medications as prescribed above.
[2016-12-13 08:21] LABS: ABSOLUTE BASOPHIL COUNT 0 /CUMM (0.0-0.2); ABSOLUTE EOSINOPHIL COUNT 0.5 /CUMM (0.0-0.7); ABSOLUTE GRANULOCYTE CT 5.8 /CUMM (1.4-6.5); ABSOLUTE LYMPH COUNT 1.7 /CUMM (1.2-3.4); ABSOLUTE MONOCYTE COUNT 0.6 /CUMM (0.10-0.60); BASOPHIL % 0.6 % (0.0-2.0); EOSINOPHIL % 6.3 % (0-5); GRANULOCYTE % 67.1 % (42.2-75.2); HEMATOCRIT 41.8 % (42-52); MEAN CORPUSCULAR HGB 29.4 PG (27.0-31.0); MEAN CORPUSCULAR VOLUME 88.9 FL (80.0-94.0); MEAN PLATELET VOLUME 10.2 FL (7.4-10.4); PLATELET COUNT 207 /CUMM (130-400); RBC DISTRIBUTION WIDTH 14.1 % (11.5-14.5); WHITE BLOOD CELL COUNT 8.7 /CUMM (4.8-10.8)
--- NOTE | 2016-12-13 13:56 | NUR ---
PT IS COMPLIANT AND COOPERATIVE. MOOD IS STABLE WITH A FULL RANGE OF AFFECT. PT DENIES SI AT THIS TIME, C./O CHRONIC PAIN. PT IS PRESENT IN THE COMMUNITY AND INTERACTING WELL WITH PEERS AND STAFF. PT IS ATTENING GROUPS. VITALS ARE STABLE, APPETIE IS GOOD.
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
[2016-12-14] VITALS (7 sets, daily range): BP systolic 137–153; BP diastolic 84–99
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
--- NOTE | 2016-12-14 12:08 | SOCIAL WORKER PROG NOTE PSYCH ---
Social Work Progress Note Progress Note Pt presents with PTSD symptomology, and reflected on his Mothers passing away. Pt explored history of being unstable and how drinking impacts his housing options and mental health status. Pt is sad, and dependent. Faxed referral to [facility]. 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 Pt encouraged to find out how [facility] case [facility] and/or [facility] can help him with these choices
--- NOTE | 2016-12-14 13:43 | NUR ---
PT IS PRESENT WITHIN THE COMMUNITY, INTERACTING WITH PEERS/STAFF. PT FREQUENTLY APPROACHES THE NURSES STATION ASKING FOR THINGS SUCH COFFEE, OATMEAL, TO CHARGE HIS CELL PHONE, ETC. PT IS ABLE TO BE REDIRECTED FOR THE MOST PART. FREQUENTLY TRIES TO ENGAGE STAFF IN ANY CONVERSATION PERTAINING TO GETTING HIS BELONGINGS FROM HIS FAMILY MEMBERS. ATTENDING GROUPS ALL DAY. VS ARE STABLE AND DENIES ANY SI/HI TO THIS MHW.
--- NOTE | 2016-12-14 15:05 | CP SOUTH PROGRESS NOTE PSYCH ---
Psych (Inpt) Progress Note Progress Note Include the following elements, when applicable: Involvement in the active treatment of the patient with behavioral observations of the patient and the patient's response to the treatment. Review of the ongoing treatment process in the context of the treatment plan. Indication of how multi-disciplinary staff members are carrying out the treatment plan. Plans for future interventions and recommendations for revision of the treatment plan. Liaison with other physicians/providers. Progress Note: I discussed this patient's progress to date, current mental status, treatment process in the context of the treatment plan, and discharge planning with staff/ team in the daily morning inpatient team meeting. I also met with the patient myself in individual session. Current Medications Sig/George Start time Last Medication Dose Route Stop Time Status Admin Acetaminophen 650 MG Q6P PRN 12/13 1445 AC 12/14 PO 1430 [place] Butter/Shark 1 MARY BID PRN 12/12 0515 AC Liver Oil TOP Cyclobenzaprine HCl 10 MG Q8P PRN 12/13 0830 AC 12/14 PO 0821 Gabapentin 600 MG 0800,1399,12/10 1400 AC 12/14 PO 1428 Hydrochlorothiazide 12.5 MG DAILY 12/10 1034 AC 12/14 PO 0820 Lorazepam 1 MG Q4P PRN 12/08 1915 AC PO Lorazepam 1.5 MG Q4P PRN 12/08 1915 AC PO Multivitamins 1 TAB 0800 12/09 0800 AC 12/14 PO 0820 Naproxen 500 MG BID 12/09 2200 AC 12/14 PO 0821 Nicotine 21 MG DAILY 12/09 1000 AC 12/14 TOP 0821 Olanzapine 15 MG 2200 12/13 2200 AC 12/13 PO 2131 Olanzapine 2.5 MG Q3P PRN 12/08 1915 AC 12/14 PO 1429 Omeprazole 20 MG DAILY AC 12/09 1539 AC 12/14 PO 0820 Prazosin HCl 1 MG AT BEDTIME 12/10 2200 AC 12/13 PO 2131 Simethicone 80 MG Q6P PRN 12/11 1230 AC 12/14 PO 0820 Trazodone HCl 100 MG AT BEDTIME NEED.. 12/10 1330 AC 12/13 PO 2132 Vital Signs Date Time Temp Pulse Resp B/P B/P Pulse O2 O2 Flow FiO2 Mean Ox Delivery Rate 12/14 1232 93 144/84 12/14 1219 93 144/84 12/14 0913 97.1 90 137/99 12/14 0828 97.1 90 137/99 12/131 97.3 96 20 152/90 12/13 1957 97.3 96 152/90 12/14 1951 97.3 96 152/90 12/13 1549 97 133/79 12/13 1540 97 133/79 A: Chart, progress notes, VS and medication list reviewed. Vital signs within normal limits. No new lab results today. Patient seen at 4:00PM. He reports feeling "better." States he spoke to his niece last night who was agreeable to dropping off his belongings this evening. He states he is still not welcomed back into her home. He seems accepting of this; feels to return there would not be healthy for him given his ongoing conflict with her and her children. He reports a flare up in sciatica pain. I encouraged PRN use of Gabapentin 300mg Q4H + scheduled 600mg TID. Patient made requests for Soma; he was educated on this medication and informed it would not be ordered. Reports + racing thoughts related to his mother's past , his niece's children, and obtaining his belongings. + paranoia that his belongings have been stolen. Describes energy level as "pretty good." Reports sleep is "better." Denies NMAs. Appetite is increased. Thought process less circumstantial, with some paranoia. Denies suicidal and homicidal ideation. Reports VH of a "man seated in a chair" last night. Patient did not recognize this man. Denied VH was distressing to him. Denies further AH or CAH. No evidence of zaid delusional content. Patient reports tolerating medications well, denies SEs. Agreeable to increasing Zyprexa to 20mg QHS for paranoia/ hallucinations/racing thoughts/mood stabilization. P: -increase Zyprexa to 20mg QHS. -add Gabapentin 300mg Q4H PRN for anxiety/discomfort. -continue monitoring on unit for safety, mood, psychosis, SI. -continue [facility] with [facility] care [facility]. -consider d/c tomorrow if clinically stable.
--- NOTE | 2016-12-14 18:42 | NUR ---
PT IS CALM, COOPERATIVE WITH STAFF AND PEERS, AND COMPLIANT WITH UNIT RULES. OFTEN IN [place], INTERACTING WELL WITH OTHERS. MOOD IS STABLE, AFFECT APPEARS EUTHMYIC TO FULL RANGE, COMMUNICATION IS ORGANIZED AND APPEARS NORMAL IN ALL RESPECTS, AND APPETITE IS NORMAL. PT DENIES SI AT THIS TIME.
--- NOTE | 2016-12-15 04:42 | NUR ---
SLEPT WELL OVERNIGHT
[2016-12-15 07:58] VITALS: BP 156/88
--- NOTE | 2016-12-15 09:07 | SOCIAL WORKER PROG NOTE PSYCH ---
Social Work Progress Note Progress Note 9:06am This entry writer left vm for patient's delinquency prevention social worker, Thomas Fried, at [facility]. A call back number for this entry writer was provided.
[2016-12-15 12:30] VITALS: BP 156/90
--- NOTE | 2016-12-15 13:36 | NUR ---
PT IS STABLE WITH FULL RANGE OF AFFECT. PT HAS BEEN VISIBLE [place] THE COMMUNITY AND INTERACTING WITH PEERS/STAFF MEMBERS. PT HAS BEEN ATTENDING GROUPS THIS AM. PT REPORTS WORRYING ABOUT HIS BELONGINGS NOT BEING BROUGHT TO THE UNIT AND HIS MEDICATION LIST NOT BEING PRINTED OUT. PT IS VERY CIRCUMSTANTIAL IN REGARDS TO HIS EMOTIONS AND SOMETIMES EVADES HOW HE IS FEELING. VS ARE STABLE AND DENIES ANY SI/HI TO THIS MHW.
--- NOTE | 2016-12-15 14:43 | CP SOUTH PROGRESS NOTE PSYCH ---
Psych (Inpt) Progress Note Progress Note I reviewed the patients electronic health record including Falguni Joy APRN s admission notes Nurse Geeta gave a verbal report Patients sleep record indicated pt. slept well BP 156/90 mmHg, Pulse 91/min, Temp 97.5, I interviewed patient No new labs past 24 hours Background: Patient is a 51-year-old male who presented to [facility] by EMS on 12/08/16 after allegedly overdosing on trazodone, lithium ( level <0.2), Percocet and alcohol in the context of command auditory hallucinations. BAL = 254. He was admitted voluntarily. Diagnoses of record: Bipolar disorder, MRE depressed w/ psychotic features R/O MDD with psychotic features R/O Personality traits Alcohol use disorder Mental Status Update: Patient reported that he still has some racing thoughts He was focused on 3 medication issues from the day before, he thought his Zyprexa was not increased when in fact it was, he wanted gabapentin and Flexeril on a regular schedule instead of PRN He was alert and oriented, pt. was coherent/no thought disorder Pt. showed good eye contact, normal speech and psychomotor activity Denied hallucinations, denies suicidal ideation, denied homicidal ideation, no delusions identified PLAN: After discussing medication options with the patient, we agreed to: Change Flexeril to regular schedule 10 mg TID
--- NOTE | 2016-12-15 15:09 | SOCIAL WORKER PROG NOTE PSYCH ---
Social Work Progress Note Progress Note This story writer met with pt. Pt was asked about scheduling a family meeting, to which he responded that he did not have any family he would like to invite. He was unable to identify any other individuals who could attend the meeting. Pt denied SI/HI, however, stated, "my mind is going a million miles an hour." Regarding other sx, pt reported that he woke up during the night and "I thought I saw a shadow." He also stated, "I hear people calling me and there's no one there." Pt was informed that this story writer has left a vm for his delinquency prevention social worker at [facility]. A bed at crisis and respite has not yet been identified. Pt expressed ongoing anxiety about his inability to obtain his belongings from his niece's home. Pt and this story writer left a vm for his niece with this story writer's call back number number. Pt stated that he had left a vm for her previously, but was unable to provide a number where she could leave a vm if she returned the call.
[2016-12-15 16:03] VITALS: BP 139/95
--- NOTE | 2016-12-15 18:08 | NUR ---
PT IS CALM, COOPERATIVE WITH STAFF AND PEERS, AND COMPLIANT WITH UNIT RULES. OFTEN IN [place], INTERACTING WELL WITH OTHERS. MOOD IS STABLE, AFFECT APPEARS EUTHYMIC TO FULL RANGE, COMMUNICATION IS ORGANIZED AND APPEARS NORMAL IN ALL RESPECTS, AND APPETITE IS NORMAL. PT DENIES SI AT THIS TIME.
[2016-12-15 19:42] VITALS: BP 159/84
[2016-12-16 07:43] VITALS: BP 126/90
--- NOTE | 2016-12-16 08:42 | CP SOUTH PROGRESS NOTE PSYCH ---
Psych (Inpt) Progress Note Progress Note Include the following elements, when applicable: Involvement in the active treatment of the patient with behavioral observations of the patient and the patient's response to the treatment. Review of the ongoing treatment process in the context of the treatment plan. Indication of how multi-disciplinary staff members are carrying out the treatment plan. Plans for future interventions and recommendations for revision of the treatment plan. Liaison with other physicians/providers. Progress Note: I discussed this patient's progress to date, current mental status, treatment process in the context of the treatment plan, and discharge planning with staff/ team in the daily morning inpatient team meeting. I also met with the patient myself in individual session. Current Medications Sig/George Start time Last Medication Dose Route Stop Time Status Admin Acetaminophen 650 MG .STK-MED ONE 12/15 1946 DC PO 12/16 1947 Acetaminophen 650 MG Q6P PRN 12/13 1445 AC 12/16 PO 0437 [place] Butter/Shark 1 MARY BID PRN 12/12 0515 AC Liver Oil TOP Cyclobenzaprine HCl 10 MG TID 12/15 1144 AC 12/15 PO 2155 Cyclobenzaprine HCl 10 MG Q8P PRN 12/13 0830 DC 12/14 PO 0821 Gabapentin 300 MG Q4 HRS NEEDED PRN 12/14 1615 AC 12/14 PO 2202 Gabapentin 600 MG 0800,1400,12/10 1400 AC 12/15 PO 1944 Hydrochlorothiazide 12.5 MG DAILY 12/10 1034 AC 12/15 PO 0808 Multivitamins 1 TAB 0800 12/09 0800 AC 12/15 PO 0808 Naproxen 500 MG BID 12/09 2200 AC 12/15 PO 2154 Nicotine 21 MG DAILY 12/09 1000 AC 12/15 TOP 0809 Nystatin 1 MARY BID 12/15 2200 AC TOP Olanzapine 20 MG 2200 12/14 2200 AC 12/15 PO 2154 Olanzapine 2.5 MG Q3P PRN 12/08 1915 AC 12/15 PO 1150 Omeprazole 20 MG DAILY AC 12/09 1539 AC 12/16 PO 0617 Prazosin HCl 1 MG AT BEDTIME 12/10 2200 AC 12/15 PO 2154 Senna/Docusate Sodium 1 TAB BID 12/15 2200 AC 12/15 PO 2248 Simethicone 80 MG Q6P PRN 12/11 1230 AC 12/15 PO 1222 Trazodone HCl 100 MG AT BEDTIME NEED.. 12/10 1330 AC 12/15 PO 2213 Vital Signs Date Time Temp Pulse Resp B/P B/P Pulse O2 O2 Flow FiO2 Mean Ox Delivery Rate 12/16 0743 97.4 97 126/90 12/15 2154 97.9 87 20 159/84 12/15 1942 97.9 87 159/84 12/15 1603 93 139/95 12/15 1230 91 156/90 A: Chart, progress notes, labs, vital signs and medication list were reviewed. Vital signs within normal limits. Non new lab results today. Patient seen at 8:15AM. He comes to session with c/o that Trazodone is not scheduled. Requesting now that it be changed from PRN. Reports continued anxiety over not having his belongings in his possession. Reports decreased racing thoughts. States he called a friend yesterday and asked if he could stay there temporarily post-discharge, however, this friend would not welcome him into his home. Patient states he is not botherered by this. He expressed some resistence about calling [facility]. States he hasn't yet. Informed patient that in order for him to be eligable for [facility] bed, he must establish that connection. He rates anxiety a 6/10 (10 beint the worst). Rates depression a 3-4/10 (10 being the worst). Denies feeling hopeless, helpless, worthless and guilty. Reports passive suicidal ideation. Denies active suicidal ideation, plans and intent. Denies homicidal ideation. Future oriented to obtain his belongings and seek permanent housing, despite showing limited insight into how to go about establishing housing. He denies auditory and visual hallucinations. Denies paranoia ideation. There is no evidence of delusional or illogical thought content. He reports tolerating medications well, denies side effects. P: -continue monitoring for safety, mood and psychosis. -change prn Trazodone to standing. -continue same medications. -arrange dispo plan.
[2016-12-16 12:31] VITALS: BP 131/92
--- NOTE | 2016-12-16 13:12 | NUR ---
PT HAS BEEN OUT IN THE COMMUNITY INTERACTING WELL WITH STAFF AND PEERS. PT HAS BEEN AT THE NURSES STATION ASKING FOR DIFFERENT THINGS AND WILL GO TO OTHER STAFF MEMBERS WHEN HE DOESN'T GET THE ANSWER HE WANTS. PT MOOD IS STABLE WITH A FULL RANGE AFFECT. PT HAS AN IRRITABLE [facility] STAFF AT TIMES. PT IS ATTENDING GROUPS. PT DENIES SI THOUGHTS AT THIS TIME.
--- NOTE | 2016-12-16 15:26 | SOCIAL WORKER PROG NOTE PSYCH ---
Social Work Progress Note Progress Note DEMETRIS AUGUSTIN III [id number] 1965 DEMETRIS AUGUSTIN III [id number] Pended Authorization # Client Authorization # Type of Request [id number] CONCURRENT Date of Admission/ Start of Services Requested From Submission Date 12/08/2016 12/16/2016 12/16/2016 Level of Service Type of Service Level of Care Type of Care INPATIENT/OC MENTAL HEALTH INPATIENT [facility]PATIENT [facility] - INPATIENT [facility]OSPITAL
[2016-12-16 16:09] VITALS: BP 147/91
--- NOTE | 2016-12-16 17:37 | SOCIAL WORKER PROG NOTE PSYCH ---
Social Work Progress Note Progress Note 11:45am This chief underwriter spoke with pt's rifle case repairer, Andrew Rhodes ([phone], [phone]), at [facility] by phone with pt present. Andrew stated that he would assist the patient in obtaining his belonging's from the pt's negriselda's garage. He stated that he may also be able to assist the pt with transportation. A meeting with Andrew, the pt and Tammie Yousif APRN has been scheduled for 12/17/16 at 10:30am. Andrew will bring appointment dates and times for the pt to meet with his behavioral health worker and prescriber at [facility] upon discharge from [facility]. This chief underwriter was unsuccessful in completing a phone screening with crisis and respite. In addition, upon calling the [place] location, this chief underwriter was informed that they were unavailable to complete a screening at this time and would call back when they are able.
--- NOTE | 2016-12-16 18:36 | NUR ---
PT IS CALM, COOPERATIVE WITH STAFF AND PEERS, AND COMPLIANT WITH UNIT RULES. OFTEN IN [place], INTERACT WITH OTHERS. MOOD IS STABLE, AFFECT APPEARS EUTHYMIC TO FULL RANGE, COMMUNICATION IS ORGANIZED AND APPEARS NORMAL IN ALL RESPECTS, AND APPETITE IS NORMAL. PT DENIES SI AT THIS TIME.
[2016-12-16 19:49] VITALS: BP 145/85
--- NOTE | 2016-12-17 07:32 | NUR ---
PT SOCIAL ON EVENINGS. PT ANXIOUS ABOUT DISCHARGE. PT SLEPT MOST OF THE NIGHT. PT AMBIVALENT ABOUT LEAVING.
[2016-12-17 07:44] VITALS: BP 149/87
--- NOTE | 2016-12-17 11:37 | CP SOUTH PROGRESS NOTE PSYCH ---
Psych (Inpt) Progress Note Progress Note Include the following elements, when applicable: Involvement in the active treatment of the patient with behavioral observations of the patient and the patient's response to the treatment. Review of the ongoing treatment process in the context of the treatment plan. Indication of how multi-disciplinary staff members are carrying out the treatment plan. Plans for future interventions and recommendations for revision of the treatment plan. Liaison with other physicians/providers. Progress Note: I discussed this patient's progress to date, current mental status, treatment process in the context of the treatment plan, and discharge planning with staff/ team in the daily morning inpatient team meeting. I also met with the patient myself in individual session. Current Medications Sig/George Start time Last Medication Dose Route Stop Time Status Admin Acetaminophen 650 MG .STK-MED ONE 12/16 2158 DC PO 12/16 215 Acetaminophen 650 MG .STK-MED ONE 12/16 1451 DC PO 12/16 1452 Acetaminophen 650 MG Q6P PRN 12/13 1445 AC 12/17 PO 0942 [place] Butter/Shark 1 MARY BID PRN 12/12 0515 AC Liver Oil TOP Cyclobenzaprine HCl 10 MG TID 12/15 1144 AC 12/17 PO 0938 Gabapentin 300 MG Q4 HRS NEEDED PRN 12/14 1615 AC 12/16 PO 2155 Gabapentin 600 MG 0800,1400,2000 12/10 1400 AC 12/17 PO 0938 Hydrochlorothiazide 12.5 MG DAILY 12/10 1034 AC 12/17 PO 0938 Multivitamins 1 TAB 0800 12/09 0800 AC 12/17 PO 0938 Naproxen 500 MG BID 12/09 2200 AC 12/17 PO 0938 Nicotine 21 MG DAILY 12/09 1000 AC 12/17 TOP 0939 Nystatin 1 MARY BID 12/15 2200 AC 12/17 TOP 0939 Olanzapine 20 MG 2200 12/14 2200 AC 12/16 PO 2154 Olanzapine 2.5 MG Q3P PRN 12/08 1915 AC 12/17 PO 0940 Omeprazole 20 MG DAILY AC 12/09 1539 AC 12/17 PO 0649 Prazosin HCl 1 MG AT BEDTIME 12/10 2200 AC 12/16 PO 2153 Senna/Docusate Sodium 1 TAB BID 12/15 2200 AC 12/17 PO 0938 Simethicone 80 MG Q6P PRN 12/11 1230 AC 12/16 PO 1707 Trazodone HCl 150 MG AT BEDTIME 12/17 2199 AC PO Trazodone HCl 100 MG 22012/16 DC 12/16 PO 2154 Trazodone HCl 50 MG AT BEDTIME NEED.. 12/16 0845 DC 12/16 PO 2258 Vital Signs Date Time Temp Pulse Resp B/P B/P Pulse O2 O2 Flow FiO2 Mean Ox Delivery Rate 12/17 0744 97.5 98 149/87 12/16 2153 87 145/85 12/16 1949 98.2 87 145/85 12/16 1609 87 147/91 12/16 1231 88 131/92 A: Chart, progress notes, labs, vital signs and medication list reviewed. Borderline HTN. No new lab results today. On the date of discharge, 12/17/16, the patient presents alert and oriented to person, place, time and situation. He presents calm and cooperative, easily engaged in conversation. Reports he is eager for discharge to obtain his belongings that remain in the garage of his niece. Describes his mood as "fine. " Affect blunted, calm. Eye contact appropriate. Speech normal in rate, tone and volume. He offers no complaints. States his sleep is good. Reports his energy level is normal. Describes having a "solid" appetite. Rates anxiety a 5/10 (10 being the worst). Rates depression a 3-4/10 (10 being the worst). He denies feeling hopeless, helpless, worthless and guilty. He denies passive and active suicidal ideation, plans and intent. He states and also believes he will not harm himself or others. Denies homicidal ideation, auditory and visual hallucinations. Reports last hearing auditory hallucinations three days ago. Reports last experiencing visual hallucinations two days ago. He denies urges and cravings to use alcohol. Agreeable to participating in weekly AA meetings and obtaining a sponsor for support in sobriety. Thought process is concrete, goal-directed. There is no evidence of delusional or illogical thought content. Patient reports tolerating medications well and denies side effects. He is agreeable to following up with [facility] for intake/housing placement. Patient also completed a phone screening for [facility] in [place], [place]. [facility] reported they would contact the patient/bottle caser regarding bed availability. The patient reports feeling safe and ready for discharge. Patient was seen again at 10:40PM together with his bottle caser from [facility], Andrew, Divine Cameron LCSW, and Bhargav. The patient expressed a desire for discharge today, despite, no permanent housing situation to return to. Patient was agreeable to follow up with [facility] post-discharge for intake/housing placement. Andrew, the patient's bottle caser, was agreeable with this plan. Andrew expressed that he and the patient would call from his office at [facility] today. Andrew expressed having no safety concerns surrounding the patient's discharge and discharge plan. Andrew agreed that he would escort the patient back to his niece' s garage to assist the patient in obtaining his belongings. Andrew also stated that he would collect all of the patient's old prescriptions/medication within the garage and bring them to the pharmacy at [facility] for disposal, as there was concern that the patient had been stockpiling medications in his garage. Both the patient and his bottle caser, Andrew, were in agreement with discharge plan for patient to follow-up with [facility] and after care at [facility] for individual/group therapies and medication managament. Andrew also stated that he would provide transportation for patient to/from appointments at [facility]. Please see Divine Cameron LCSW's note for additional information regarding meeting and [facility] phone screenings. Patient's discharge was reviewed extensively with Dr. Cowart, social work, myself and and nursing staff. Per treatment team decision, the patient was deemed psychiatrically stable for discharge. There were no objections to him discharging today, P: -discharge today into self-care. -f/u with [facility] for intake/prison placement. -f/u at [facility] in [place] on 12/20/16 at 1PM for individual therapy with clinician Thomas Fried; 12/21/16 at 10:30AM for case management group ( meets every tuesday at 10:30AM); 12/22/16 at 3:30PM for medication evaluation with Dr. Chacko. -[facility] referral completed. Patient/bottle caser to follow up with [place] location regarding crisis and respite bed availability. Both parties verbalized understanding. -All prescriptions were e-prescribed to [facility], today. -patient strongly advised to abstain from all substances, attend daily to weekly AA meetings and obtain a sponsor for support in sobriety. -patient advised that in the event of an emergency, to call [phone]/go to the nearest emergency department. patient verbalized understanding of instructions.
[2016-12-17 12:08] VITALS: BP 150/95
--- NOTE | 2016-12-17 12:17 | SOCIAL WORKER PROG NOTE PSYCH ---
Social Work Progress Note Progress Note 10:40AM This keno writer/runner met with Tammie Yousif APRN, pt and pt's case liner, Andrew, from [facility]. Continued attempts to reach [facility] regarding referral, beds and a screening were made. This keno writer/runner attempted to call [facility] earlier this morning and was informed by Otilio at the [place] location to call back later to speak with Pema Tristen. A follow up call was made at 10:30am (at which time she was unavailable) and she was reached on 11: 05am. Pt completed the screening and she confirmed receipt of the referral. She stated that there wasn't any bed availability at the time of this call. She was provided with pt's number as well as Andrew's number and will be in contact with pt and/or Andrew when a bed is available. She stated that the pt could be admitted to their crisis and respite bed even after he has been discharged from the hospital (as opposed to directly from the hospital). An attempt to reach [facility] was also made. Pt has agreed to follow up with [facility]. Andrew stated that he could do this from [facility] this afternoon. Andrew provided the following outpatient appointment dates/times, which pt accepted: - 12/20/16 at 1pm, first group and then individual therapy with Thomas Fried - 12/22/16, 3:30pm, medication management appointment with Dr. Chacko - patient will return to weekly case management groups with Andrew on Tuesdays at 10:30am Attempts were also made to contact the [facility], however, representatives were unavailable. When contacted yesterday, this keno writer/runner was informed that they were unable to talk at the time and would call back. They were offered this keno writer/runner's number and responded that they already had the [facility] number. A final attempt was made to reach [facility] and a vm was left with this keno writer/runner's call back number.
[2016-12-17] MEDS ORDERED: TRAZODONE HCL150 M1 PO (12:18)
[2016-12-17] MEDS ORDERED: ONE DAILY MULT1 EAC2 PO (12:18)
[2016-12-17] MEDS ORDERED: OLANZAPINE10 M1 PO (12:18)
[2016-12-17] MEDS ORDERED: MINIPRESS1 MG PO (12:18)
[2016-12-17] MEDS ORDERED: NYSTATIN15 G1 TOP (12:18)
[2016-12-17] MEDS ORDERED: NICOTINE PATCH1 EAC3 TOP (12:18)
[2016-12-17] MEDS ORDERED: PROTONIX40 M3 PO (12:18)
[2016-12-17] MEDS ORDERED: CYCLOBENZAPRINE10 M1 PO (12:18)
[2016-12-17] MEDS ORDERED: GABAPENTIN600 M1 PO (12:18)
[2016-12-17] MEDS ORDERED: HYDROCHLOROTH12.5 M3 PO (12:18)
[2016-12-17] MEDS ORDERED: SENNA PLUS TAB1 EACH PO (12:18)
--- NOTE | 2016-12-17 12:22 | Patient Discharge Instructions ---
Psych Discharge Inst General Discharge Information Reason for Admission: Alleged overdose on multiple medications in the context of command auditory hallucinations. Psy Discharge Primary Diag+ Bipolar disorder, MRE depressed with psychotic features. Psy Discharge Secondary Diag+ R/O MDD with psychotic features; R/O Personality traits; Alcohol use disorder. Summary Tests/Major Procedures N/A Studies Pending at DC: N/A Patient Instructions Contact Information Your Psychiatrist on [facility] was CORINA BECKER MD/ RAMON ALCANTARA APRN. * If you are experiencing an emergency related to this hospitalization, please call [phone] to contact the treating psychiatrist or the psychiatrist-on- call. * To Request a copy of your medical records, please contact the Medical Records Department at [phone]. * To request results of studies pending at the time of discharge, please call [phone]. * Continue your Medications until directed to stop by your Healthcare provider. General Medication Information Please continue to take your new medications and your continued home medications , unless otherwise indicated on your discharge medication list, or unless directed by your or [place] to stop them. Special Instructions: DIET: Regular. ACTIVITY LEAVEL: No restrictions. Advance Directives Does the Patient have Medical Advance Directives No/Refused further info Does Pt have Psychiatric Advance Directives? No/Refused further info Does Patient have a Designated Surrogate Decision Maker: No Information About Psychiatric Advance Directives Provided? Refused Discharge Plan Post Hospital Treatment Plan: Post Discharge Referrals Provider Referral Service Date: 12/20/16 Referred To: [Chalino] Notes: [place] [address] 12/20/16, 1pm: group and individual therapy beginning at 1pm Provider Referral Service Date: 12/22/16 Referred To: [Chalino] Notes: [place] [address] 12/22/16, 3:30pm: medication appointment with Dr. Chacko Provider Referral Service Date: 12/21/16 Referred To: [Chalino] Notes: [place] [address] 12/21/16, 10:30am: case management group, meets every Tuesday at 10:30am Provider Referral Service Date: 12/17/16 Referred To: [Housing] Notes: Patient will follow up with 211 regarding fpc intake and placement. Patient has completed a screening with [facility] in [place]. [facility] will contact pt and/or his case management rn when a bed is available. Pt will follow up as well: [place], [place] [phone] Contact for [facility] in [place], [place] [phone]
--- NOTE | 2016-12-17 12:27 | NUR ---
PT IS TENTATIVELY SCHEDULED TO DISCHARGE TODAY, PRESENT IN THE COMMUNITY AND SOCIAL/APPROPROIATE WITH PEERS AND STAFF, NO ISSUES OR COMPLAINTS REPORTED OR OBSERVED. WHEN ASKED DIRECTLY DENIES SI/HI/MERAZ. DISCHARGE INSTRUCTIONS EXPLAINED TO PT AND HAS A POSITIVE UNDERSTANDING AND VERBALIZES MOTIVATION, FURTURE ORIENTED, MOOD STABLE WITH FULL RANGE AFFECT. UNDERSTANDS MEDICATION REGIMEN AND INFORMATION PACKETS RE: SI, DEPRESSION, AND PHYCHOSIS GIVEN AND PT RESOURCE GUIDE REVIEWED WITH ALL OTHER PERTINANT INFORMATION I.E. [facility], [facility], SUICIDE HOTLINE NUMBERS ETC AND VERBALIZED UNDERSTANDING AND NO QUESTIONS.
--- NOTE | 2016-12-17 17:45 | DISCHARGE SUMMARY REPORT-PSYCH ---
Visit Information Visit Dates/Diagnosis' Admission Date: 12/08/16 Discharge Date: 12/17/16 Reason for Admission: Patient presented to [facility] Emergency Department by EMS on 12/08/16 after allegedly overdosing on trazodone, lithium (level <0.2 on admission), percocet and alcohol in the context of command auditory halluciations. Psy Discharge Primary Diag: Bipolar disorder, MRE depressed with psychotic features. Psy Discharge Secondary Diag: R/O MDD with psychotic features; R/O Personality traits; Alcohol use disorder. Hospital Course Significant Lab Findings: Lab HDL Cholesterol 34 mg/dL L 08/02/16 1439 LDL Cholesterol, Calc 63 mg/dL L 08/02/16 1439 Eosinophils % 6.3 % H 12/13/16 0640 Hct 41.8 % L 12/13/16 0640 Hgb 13.8 G/DL L 12/13/16 0640 Lymphocytes % 19.5 % L 12/13/16 0640 Serum Alcohol 254.0 MG/DL 12/08/16 0128 Urine Cannabis Screen 15.40 NG/ML 12/08/16 0128 12/08/2016 EKG: Sinus rhythm with a rate of 93. Ventricular premature complex. Left anterior fascicular block. Left ventricular hypertrophy. ME: 188. QRSD: 102. QT: 360. QTc: 448. P: 30. QRS: -61. T: 79. Course Complications: None. Consultations: The patient was seen by director advertising Dr. Karen Palencia for admission history and physical. HCTZ 12.5mg daily was started by Dr. Palencia for HTN. Please see her note for additional information. Allergies: Coded Allergies: acetic acid (RASH 12/12/16) Uncoded Allergies: Vinegar (Rash 12/08/16) Hospital Course/TX Response: The patient was monitored on the unit for safety, mood, suicidal ideation, command auditory hallucinations and visual hallucinations, and alcohol withdrawal. He was monitored on CIWA protocol and did not exhibit any complications or symptoms of withdrawal. Zyprexa 5mg QHS was started for hallucinations and mood stabilization; Zyprexa was gradually increased to 20mg QHS. Trazodone was reduced from 150mg QHS to 50mg QHS PRN due to concern of worsening hallucinations. As hallucinations ceased, Trazodone was increased back to 150mg QHS for insomnia without recurrence of hallucinations. Gabapentin 600mg TID was started for anxiety/discomfort. Prazosin 1mg QHS was started for nightmares. Flexeril 10mg BID was increased to TID for muscle spasms. Naprosyn 500mg BID was continued for chronic back pain. The patient reported tolerating all medications well and denied untoward effects. During the hospital course, the patient's mood and affect improved. Suicidal ideation and auditory/visual hallucinations remitted. The patient's niece was contacted; however, she did not want to be involved in the patient's inpatient care. A meeting was held with the patient, his patient case coordinator from [facility] (Andrew), Divine Cameron LCSW, and Bhargav. The patient's treatment progress, medication regimen , level of safety and discharge planning were reviewed and discussed. Patient was agreeable to follow up with [facility] post-discharge for intake/housing placement. Andrew, the patient's patient case coordinator, was agreeable with this plan. Andrew expressed that he and the patient would call from his office at [facility] following discharge. Andrew expressed having no safety concerns surrounding the patient's discharge or discharge plan. Andrew agreed that he would escort the patient back to his niece's garage to assist the patient in obtaining his belongings ( permission was received from the patient's niece for this to take place). Andrew also stated that he would collect all of the patient's old prescriptions/ medication within the garage and bring them to the pharmacy at [facility] for disposal, as there was prior concern that the patient had been stockpiling medications in his garage. Both the patient and his patient case coordinator, Andrew, were in agreement with discharge plan for patient to follow-up with [facility] and after care at [facility] for individual/group therapies and medication managament. Andrew also stated that he would provide transportation for patient to/from appointments at [facility]. [facility] phone screening at the [place] location was also completed. Andrew and the patient stated they would follow up with this service regarding bed availability post-discharge for temporary housing. On the date of discharge, 12/17/16, the patient presents alert and oriented to person, place, time and situation. He presents calm and cooperative, easily engaged in conversation. Reports he is eager for discharge to obtain his belongings that remain in the garage of his niece. Describes his mood as "fine. " Affect blunted, calm. Eye contact appropriate. Speech normal in rate, tone and volume. He offers no complaints. States his sleep is good. Reports his energy level is normal. Describes having a "solid" appetite. Rates anxiety a 5/10 (10 being the worst). Rates depression a 3-4/10 (10 being the worst). He denies feeling hopeless, helpless, worthless and guilty. He denies passive and active suicidal ideation, plans and intent. He states and also believes he will not harm himself or others. Denies homicidal ideation, auditory and visual hallucinations. Reports last hearing auditory hallucinations three days ago. Reports last experiencing visual hallucinations two days ago. He denies urges and cravings to use alcohol. Agreeable to participating in weekly AA meetings and obtaining a sponsor for support in sobriety. Thought process is concrete, goal-directed. There is no evidence of delusional or illogical thought content. Patient reports tolerating medications well and denies side effects. He is agreeable to following up with 211 for intake/housing placement. Patient also completed a phone screening for [facility] in [place], [place]. [facility] reported they would contact the patient/patient case coordinator regarding bed availability. The patient reports feeling safe and ready for discharge. Patient's discharge was reviewed extensively with Dr. Cowart, social work, myself and nursing staff. Per treatment team decision, the patient was deemed psychiatrically stable for discharge. There were no objections to him discharging. Discharge HBIPS - Tobacco Use Treatment Offered Post DC Medications Offered: Script Given-See Med List Post DC Tobacco Treatment Plan: Refused Tobacco Tx Pgm - EtOH/Drug Use D/O Treatment Offered Post DC Medications Offered: Ref Med EtOH/Drug Use D/O Post DC EtOH/SubAbuse TX Plan: Refused Post DC Tx Pgm Metabolic Screening - Screen if on a Neuroleptic Medication - Metabolic screening should include: - Blood Pressure, BMI, Glucose or Hgb A1c, & a - Lipid profile from within the past 365 days. Metabolic Screening () Not Applicable, patient not on a neuroleptic. OR ([X]) Patient on a neuroleptic(s) . Enter below results for Glucose or Hemoglobin A1C, and lipid panel if obtained during the last 365 days. BMI: 31.700 Blood Pressure: 150/95 Laboratory Results (If applicable): Lab Cholesterol 121 MG/DL 08/02/16 1439 Cholesterol/HDL Ratio 4 % 08/02/16 1439 HDL Cholesterol 34 mg/dL L 08/02/16 1439 Hemoglobin A1c 5.6 % 08/02/16 1439 LDL Cholesterol, Calc 63 mg/dL L 08/02/16 1439 Triglycerides 120 mg/dL 08/02/16 1439 Discharge Instructions General Discharge Information Discharge Medications: Discharge Medications- (Dose, route, freq, indication): START taking these NEW Home Medications: Cyclobenzaprine HCl Dose: ORAL, THREE TIMES DAILY Qty: 42 Sent to (Cyclobenzaprine 10 Milligram for muscle spasms Refills: 0 Pharm 1 HCl) 10 MG TABLET Take 1 tab po TID. Prazosin Dose: ORAL, AT BEDTIME for Qty: 14 Sent to Hydrochloride 1 Milligram nightmares Refills: 0 Pharm 1 (Minipress) 1 MG Take 1 cap po QHS. CAPSULE Gabapentin Dose: ORAL, THREE TIMES DAILY Qty: 42 Sent to (Gabapentin) 600 MG 1 Tablet for discomfort/anxiety Refills: 0 Pharm 1 TABLET Take 1 tab po TID. Trazodone HCl Dose: ORAL, AT BEDTIME for Qty: 14 Sent to (Trazodone HCl) 150 1 Tablet insomnia/depression Refills: 0 Pharm 1 MG TABLET Take 1 tab po QHS. Olanzapine Dose: ORAL, 2200 for mood Qty: 28 Sent to (Olanzapine) 10 MG 20 Milligram stability/clear thoughts Refills: 0 Pharm 1 TABLET Take 2 tabs po QHS. Hydrochlorothiazide Dose: ORAL, DAILY for HTN Qty: 14 Sent to (Hydrochlorothiazide) 12.5 Take 1 tab po daily. Refills: 0 Pharm 1 12.5 MG CAPSULE Milligram Sennosides/Docusate Dose: ORAL, TWICE DAILY for Qty: 28 Sent to Sodium (Senna Plus 1 Tablet constipation Refills: 0 Pharm 1 Tablet) 8.6 MG-50 MG Take 1 tab po BID. TABLET Nystatin (Nystatin) Dose: On the skin, TWICE DAILY Qty: 1 Sent to 100,000 UNIT/GRAM 1 Application for FUNGAL RASH Refills: 0 Pharm 1 CREAM..G. Apply topically to affected areas BID. Multivitamin (One Dose: ORAL, DAILY @8 AM for Qty: 14 Sent to Daily Multivitamin) 1 Tablet vitamin support Refills: 0 Pharm 1 1 EACH TABLET Take 1 tab po daily. CHANGES to Home Medications: Pantoprazole Sodium Dose: ORAL, DAILY for GERD Sent to (Protonix) 40 MG 1 Tablet Take 1 tab po daily. Pharm 1 TABLET. (changed from: Pantoprazole Sodium (Pantoprazole Sodium) DAILY for ACID REFLUX [ No Instructions ]) Nicotine (Nicotine Dose: On the skin, DAILY for Sent to Patch) 21 MG/24 HOUR 1 PATCH smoking cessation Pharm 1 PATCH.TD24 Apply 1 patch topically to upper arm QAM and remove before HS. (changed from: for SMOKING CESSATION [ No Instructions ]) CONTINUE taking these Home Medications: Naproxen (Naproxen) 500 Dose: ORAL, TWICE DAILY for MG TAB 1 Tablet PAIN Last Taken:NOT TAKEN IN HOSPITAL Time: STOP taking these DISCONTINUED Home Medications: Quetiapine Fumarate (Seroquel) Dose: ORAL, 0900,1700 for MENTAL HEALTH 25 MG TAB 1 Tablet Reason Stopped: Per Doctor Decision TRAZODONE HCL (Trazodone HCl) Dose: ORAL, AT BEDTIME for Insomnia 50 MG TAB 1 Tablet Reason Stopped: Per Doctor Decision Brexpiprazole (Rexulti) 2 MG Dose: ORAL, DAILY for MENTAL HEALTH TABLET 1 Tablet Reason Stopped: Per Doctor Decision Bupropion HCl (Wellbutrin XL) Dose: ORAL, DAILY for MENTAL HEALTH 150 MG TAB.ER.24H 450 Milligram Reason Stopped: Per Doctor Decision Hydroxyzine Pamoate (Vistaril) Dose: ORAL, as needed for ANXIETY 50 MG CAPSULE 50 Milligram Reason Stopped: Per Doctor Decision Benztropine Mesylate Dose: ORAL, DAILY for MENTAL HEALTH (Benztropine Mesylate) 1 MG 1 Milligram Reason Stopped: Per Doctor TABLET Decision 1: [facility], [address] [place] [address] Your Preferred Pharmacy [facility] [address] [place] [address] Multiple Neuroleptics: ([X]) Not Applicable OR Document below three failed attempts at monotherapy, or a plan to taper to monotherapy, or augmentation of Clozapine. () Patient's Diet: Regular. Patient's Activity: No restrictions. DC Disposition: Self care. Patient instructed to call 211 for longterm intake/placement. Patient also encouraged to follow up with [facility] in [facility] for temporary housing placement. Recommendations: The patient was advised to please take his medications as prescribed. He was advised to attend daily to weekly AA meetings, to abstain from all substances and to obtain a sponsor for support in sobriety. He was advised to follow-up with scheduled services at [facility] in [place]. He was advised to follow-up with his PCP for outpatient management of HTN. He was advised that in the event of an emergency to call [facility]/911/go to the nearest emergency department. Patient verbalized understanding of all instructions. Referred To: Post Discharge Referrals Provider Referral Service Date: 12/20/16 Referred To: [Chalino] Notes: [place] [address] 12/20/16, 1pm: group and individual therapy beginning at 1pm Provider Referral Service Date: 12/22/16 Referred To: [Chalino] Notes: [place] [address] 12/22/16, 3:30pm: medication appointment with Dr. Chacko Provider Referral Service Date: 12/21/16 Referred To: [Chalino] Notes: [place] [address] 12/21/16, 10:30am: case management group, meets every Tuesday at 10:30am Provider Referral Service Date: 12/17/16 Referred To: [Housing] Notes: Patient will follow up with [facility] regarding longterm intake and placement. Patient has completed a screening with [facility] in [place]. [facility] will contact pt and/or his case reviewer when a bed is available. Pt will follow up as well: [place], [place] [phone]. Contact for [facility] in [place], [place] [phone] Copies To: Chalino
== END 2016-12-17 13:10 | DRG 753 ==
LOC: ERH 00:38 → CANBEDREQ 01:47 → ERHI 11:12 → CP SOUTH 11:12 → ENTRNSPT 18:29 → CP SOUTH 19:14 → CMPTRNSPT 19:14 → DELTRNSPT 19:20 → ENRESERV 23:59 → CP SOUTH 12-13 10:30
PROVIDERS: Emergency Medicine; Internal Medicine; ADMIT Psychiatry & Neurology Addiction Medicine
DX: F31.9 Bipolar disorder, unspecified (principal); R45.851 Suicidal ideations; F10.20 Alcohol dependence, uncomplicated; F17.200 Nicotine dependence, unspecified, uncomplicated; F30.2 Manic episode, severe with psychotic symptoms
CPT/HCPCS: 36415; 80307; 82436; 93005; 93010; 96374; G0463; G0480; J2310; J3101; J3490

== ENCOUNTER 2018-01-17 06:38 | Inpatient (IN) | payer OTHER ==
[~2018-01-17] VITALS: Ht 180.3 cm; Wt 101.3 kg
[~2018-01-17 06:38] MED LIST changes: +BENZTROPINE MESY1 M1 PO; +CYCLOBENZAPRINE10 M1 PO; +GABAPENTIN600 M1 PO; +HYDROCHLOROTH12.5 M3 PO; +MINIPRESS1 MG PO; +NICOTINE PATCH1 EAC3; +NICOTINE PATCH1 EAC3 TOP; +NYSTATIN15 G1 TOP; +OLANZAPINE10 M1 PO; +ONE DAILY MULT1 EAC2 PO; +PRAZOSIN HCL2 M1 PO; +PROTONIX40 M3 PO; +REXULTI2 M1 PO; +SENNA PLUS TAB1 EACH PO; +TRAZODONE HCL150 M1 PO; +VISTARIL50 M1 PO; +WELLBUTRIN XL150 M2 PO; +WELLBUTRIN XL300 M2 PO
--- NOTE | 2018-01-17 06:48 | ED PSYCHIATRIC COMPLAINT ---
History of Present Illness General Chief Complaint: Psychiatric Related Complaint Stated Complaint: BIBA ETOH,+SI Source: patient, EMS Exam Limitations: no limitations Vital Signs & Intake/Output Vital Signs & Intake/Output . Triage Nurses Notes Reviewed? yes Onset: Gradual Duration: week(s): Timing: recent history Severity: moderate Associated Symptoms: suicidal ideation, alcohol intoxication HPI: 52 yo gentleman h/o alcohol abuse and homelessness presents with suicidal ideation. He was found in front of a gazebo, reporting suicidality. He has not been papered, but has come on his own volition. He notes that he drank a case of beer last night and has been using other drugs. He denies HI/hallucinations/seizures. He has not been taking any chronic medications. (Sharon LOWE,Joo Rutherford) Allergies Coded Allergies: acetic acid (RASH 01/17/18) VINEGAR -> RASH Reconcile Medications Gabapentin 600 MG TABLET 1 TAB PO TID discomfort/anxiety Take 1 tab po TID. Hydrochlorothiazide 12.5 MG CAPSULE 12.5 MG PO DAILY HTN Take 1 tab po daily. Olanzapine 10 MG TABLET 20 MG PO 2200 mood stability/clear thoughts Take 2 tabs po QHS. Pantoprazole Sodium (Protonix) 40 MG TABLET.DR 1 TAB PO DAILY GERD Take 1 tab po daily. Prazosin HCl 2 MG CAPSULE 2 MG PO BID blood pressure/nightmares Trazodone HCl 150 MG TABLET 1 TAB PO AT BEDTIME insomnia/depression Take 1 tab po QHS. (Mary Ann LOWE,Gilberto Cho) Past History Travel History Traveled to [place] past 21 day No Medical History Any Pertinent Medical History? see below for history Neurological: "SHORT TERM MEMORY FROM HEAD INJURIES IN PAST" EENT: NONE Cardiovascular: hypertension Respiratory: PNEUMONIA HX OF Gastrointestinal: HERNIA Hepatic: NONE Renal: NONE Musculoskeletal: NONE Psychiatric: alcohol dependence, anxiety, bipolar disease, substance abuse, SUICIDE ATTEMPTS psychotic disorder NOS Endocrine: NONE Blood Disorders: NONE Cancer(s): NONE TIRE SETTER/Reproductive: NONE History of MRSA: No History of VRE: No History of CDIFF: No Tetanus Vaccine: 06/17/15 Surgical History Surgical History: non-contributory Psychosocial History Who do you live with Other (see notes) Services at Home None What is your primary language Faroese Family History Hx Contributory? No (Sharon LOWE,Joo Rutherford) Review of Systems Review of Systems Constitutional: Reports: no symptoms. EENTM: Reports: no symptoms. Respiratory: Reports: no symptoms. Cardiovascular: Reports: no symptoms. GI: Reports: no symptoms. Genitourinary: Reports: no symptoms. Musculoskeletal: Reports: no symptoms. Skin: Reports: no symptoms. Neurological/Psychological: Reports: no symptoms. Hematologic/Endocrine: Reports: no symptoms. Immunologic/Allergic: Reports: no symptoms. All Other Systems: Reviewed and Negative (Sharon LOWE,Joo Rutherford) Physical Exam Physical Exam General Appearance: well developed/nourished, mild distress Head: atraumatic Eyes: Bilateral: normal appearance. Ears, Nose, Throat: normal pharynx, normal ENT inspection Neck: normal inspection, supple, full range of motion Respiratory: no respiratory distress Extremities: normal range of motion Neurological/Psychiatric: no motor/sensory deficits, awake, calm, flat, intoxicated Appearance/Memory/Insight: disheveled, impaired insight Behavoir/Eye Contact/Speech: cooperative Thoughts/Hallucinations: no apparent hallucination Skin: intact, normal color, warm/dry SAD PERSONS SAD PERSONS Response Value Male Sex? yes 1 Age <19 or >45 years? yes 1 Depression/Hopelessness? yes 2 Previous Attempts/Psych Care yes 1 Excessive Ethanol/Drug Use? yes 1 Rational Thinking Loss? yes 2 Single//? yes 1 Social Support? has no support 1 Total 10 SAD PERSONS Done? yes (Sharon LOWE,Joo Rutherford) Progress Differential Diagnosis: alcohol abuse, vs depression vs other. Plan of Care: will draw labs, pt to be evaluated by crises when sober. pt signed out to dr. reese, 01/17/18, 7am. (Joo Herrera MD) Hand-Off Endorsed To: Yusef Jeter DO Endorsed Time: 1899 Pending: consult (Mary Ann LOWE,Gilberto Cho) Initial ED EKG: NSR Prior EKG: unchanged (Yusef Jeter DO) Departure Departure Disposition: STILL A PATIENT Condition: Stable Clinical Impression Primary Impression: Alcohol intoxication Secondary Impressions: Homeless Referrals: Luca Segovia MD (PCP/Family) Departure Forms: Customer Survey General Discharge Information Comments pt signed out to dr. reese, 01/17/18, 7am. (Joo Herrera MD) Departure Comments The patient was not signed out to me. The patient was admitted to Inpatient Psychiatry by Dr. Reese (Yusef Jeter DO)
[2018-01-17 07:13] LABS: ABSOLUTE BASOPHIL COUNT 0.1 /CUMM (0.0-0.2); ABSOLUTE EOSINOPHIL COUNT 0.1 /CUMM (0.0-0.7); ABSOLUTE GRANULOCYTE CT 6.7 /CUMM (1.4-6.5); ABSOLUTE LYMPH COUNT 1.5 /CUMM (1.2-3.4); ABSOLUTE MONOCYTE COUNT 0.5 /CUMM (0.10-0.60); BASOPHIL % 0.7 % (0.0-2.0); EOSINOPHIL % 1.6 % (0-5); HEMATOCRIT 48.6 % (42-52); MEAN CORPUSCULAR HGB 31.8 PG (27.0-31.0); MEAN CORPUSCULAR HGB CONC 34.4 G/DL (33.0-37.0); MEAN CORPUSCULAR VOLUME 92.5 FL (80.0-94.0); MEAN PLATELET VOLUME 9.3 FL (7.4-10.4); PLATELET COUNT 235 /CUMM (130-400); RBC DISTRIBUTION WIDTH 14.6 % (11.5-14.5); RED BLOOD CELL CT 5.26 /CUMM (4.70-6.10); WHITE BLOOD CELL COUNT 8.9 /CUMM (4.8-10.8)
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
[2018-01-17 22:19] VITALS: BP 145/77
[2018-01-17 22:42] VITALS: BP 145/77
[2018-01-18] VITALS (8 sets, daily range): BP systolic 142–155; BP diastolic 83–95
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
[2018-01-19] VITALS (7 sets, daily range): BP systolic 125–155; BP diastolic 77–93
--- NOTE | 2018-01-19 14:23 | SOCIAL WORKER PROG NOTE PSYCH ---
Social Work Progress Note Progress Note Faxed over referral to Shaan Brumfield and [facility] Vivas (fax confirmations received)
--- NOTE | 2018-01-19 14:34 | SOCIAL WORKER PROG NOTE PSYCH ---
Social Work Progress Note Progress Note Made a [facility] referral spoke with Marisabel, she completed intake.
--- NOTE | 2018-01-19 15:33 | SOCIAL WORKER PROG NOTE PSYCH ---
Social Work Progress Note Progress Note This group underwriter met with patient. He reported his mood as "I'm depressed" and reported ongoing SI with a plan to OD on pills. When asked about access to pills, he stated, "I could probably find some." Patient was provided with a list of Recovery Houses and numbers. He was agreeable to rehab progress and referrals were sent (see note entered by Zeenat Ritter [facility]). PAtient stated that his case planner (Andrew) with [facility] as suggested that he move to [facility] due to location. Patient stated that his clinician at [facility] is Thomas Andrew. He is willing to move. Patient is also willing to have a family meeting with his niece (with whom he was living prior to admission) and his sister. Patient stated that he is aware of 211/CAN assessments, however, is not willing to go to a halfway. "Sleeping on a park bench is the same thing." 2:45pm This group underwriter contacted [facility] ([phone]) and spoke with Ami. She requested a JOAN to be faxed ([phone]). Multiple attempts were made and fax was sent successfully at 3:27pm with a request that Thomas Andrew and/or Andrew contact this group underwriter.
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
--- NOTE | 2018-01-19 16:17 | IP INCIDENTAL NOTE PSYCH ---
Incidental Note Notation: Voicemail left for Grace Bashir APRN to call me.
[2018-01-20 02:14] VITALS: BP 140/74
[2018-01-20 07:58] VITALS: BP 151/90
[2018-01-20 08:01] VITALS: BP 151/90
[2018-01-20 12:15] VITALS: BP 180/88
--- NOTE | 2018-01-20 13:17 | Patient Discharge Instructions ---
Psych Discharge Inst General Discharge Information Reason for Admission: Suicidal ideation, polysubstance abuse, homeless. Psy Discharge Primary Diag+ Bipolar disorder Psy Discharge Secondary Diag+ PTSD Alcohol use disorder Cocaine use disorder Cannabis use disorder Chronic pain Hypertension Summary Tests/Major Procedures Lab ALT 62 U/L 01/17/18 0703 AST 31 U/L 11/09/17 1206 AST 64 U/L H 01/17/18 0703 BUN 10 mg/dL 01/17/18 0703 Calcium 8.9 mg/dL 01/17/18 0703 Carbon Dioxide 26 mmol/L 01/17/18 0703 Chloride 100 mmol/L 01/17/18 0703 Creatinine 0.6 mg/dL L 01/17/18 0703 Estimated GFR > 60 ml/min 01/17/18 0703 Glucose 82 mg/dL 01/17/18 0703 Hemoglobin A1c 5.5 % 01/17/18 0703 Potassium 4.2 mmol/L 01/17/18 0703 Sodium 138 mmol/L 01/17/18 0703 TSH &T3 &Free T4 Intrp 1.100 uIU/mL 01/17/18 0703 Total Bilirubin 0.6 mg/dL 01/17/18 0703 Absolute Granulocytes 6.7 /CUMM H 01/17/18 0703 Hct 48.6 % 01/17/18 0703 Hgb 16.7 G/DL 01/17/18 0703 Lymphocytes % 17.1 % L 01/17/18 0703 MCH 31.8 PG H 01/17/18 0703 Plt Count 235 /CUMM 01/17/18 0703 RDW 14.6 % H 01/17/18 0703 WBC 8.9 /CUMM 01/17/18 0703 Serum Alcohol 126.0 MG/DL 01/17/18 0703 Urine Cannabis Screen > 80.00 NG/ML H 01/17/18 0703 Urine Cocaine Screen > 1000 NG/ML H 01/17/18 0703 EKG 01/17/18 showed sinus rhythm @ 94, probable left atrial abnormality, left anterior fascicular block, borderline R wave progression, anterior leads, incomplete RBBB and LAFB, probably no significant change since previous tracing, abnormal ECG, QT 348, QTc 436. Studies Pending at [place]: None. Patient Instructions Contact Information Your Psychiatrist on [facility] was ZiJoo gleason MD * If you are experiencing an emergency related to this hospitalization, please call [phone] to contact the treating psychiatrist or the psychiatrist-on- call. * To Request a copy of your medical records, please contact the Medical Records Department at [phone]. * To request results of studies pending at the time of discharge, please call [phone]. * Continue your Medications until directed to stop by your Healthcare provider. General Medication Information Please continue to take your new medications and your continued home medications , unless otherwise indicated on your discharge medication list, or unless directed by your MD or FOOD WRITER to stop them. Special Instructions Diet Regular Activity Normal Other Inst/Recommendations Stay away from drugs and alcohol! SeePC about high AST and abnormal EKG. - Tobacco Use Treatment Offered Post DC Medications Offered: Script Given-See Med List Post DC Tobacco Treatment Plan: [facility] Tobacco Tx Pgm Program Appt Date: 01/25/18 Program Appt Time: 1600 - EtOH/Drug Use D/O Treatment Offered Post DC Medications Offered: Med Not Indicated for D/O Post DC EtOH/SubAbuse TX Plan: Other SubAbuse/Dual Pgm ([facility]) Program Appt Date: 01/24/18 Program Appt Time: 1130 Metabolic Screening () Not Applicable, patient not on a neuroleptic. OR () Patient on a neuroleptic(s) . Enter below results for Hemoglobin A1C, and lipid panel if obtained during the last 365 days. BMI: 31.100 Blood Pressure: 180/88 Laboratory Results From [facility] (If applicable): [x] Lab Cholesterol 130 MG/DL 11/09/17 1206 Cholesterol/HDL Ratio 2 % 11/09/17 1206 HDL Cholesterol 55 mg/dL 11/09/17 1206 Hemoglobin A1c 5.5 % 01/17/18 0703 LDL Cholesterol, Calc 48 mg/dL L 11/09/17 1206 Triglycerides 139 mg/dL 11/09/17 1206 Advance Directives Does the Patient have Medical Advance Directives No/Refused further info Does Pt have Psychiatric Advance Directives? No/Refused further info Does Patient have a Designated Surrogate Decision Maker: No Information About Psychiatric Advance Directives Provided? Refused Discharge Plan Post Hospital Treatment Plan: Patient to pursue housing.
[2018-01-20] MEDS ORDERED: OXYCODONE HCL10 M2 PO (14:13)
[2018-01-20] MEDS ORDERED: PRAZOSIN HCL2 M1 PO (14:15)
[2018-01-20] MEDS ORDERED: CYMBALTA20 M1 PO (14:15)
[2018-01-20] MEDS ORDERED: TRAZODONE HCL150 M1 PO (14:15)
[2018-01-20] MEDS ORDERED: GABAPENTIN600 M1 PO (14:15)
[2018-01-20] MEDS ORDERED: CYCLOBENZAPRINE10 M1 PO (14:15)
[2018-01-20] MEDS ORDERED: PROTONIX40 M3 PO (14:15)
[2018-01-20] MEDS ORDERED: ONE DAILY MULT1 EAC2 PO (14:15)
[2018-01-20] MEDS ORDERED: OLANZAPINE20 M1 PO (14:15)
[2018-01-20] MEDS ORDERED: NICOTINE PATCH1 EAC3 TOP (14:15)
[2018-01-20] MEDS ORDERED: HYDROCHLOROTH12.5 M3 PO (14:15)
[2018-01-20] MEDS ORDERED: SENNA PLUS TAB1 EACH PO (14:15)
--- NOTE | 2018-01-20 17:36 | SOCIAL WORKER PROG NOTE PSYCH ---
Social Work Progress Note Progress Note This policy writer typist met with patient. We discussed discharge plans and he was agreeable to discharging today. Patient reported ongoing SI with the thought of "I'm better off not being around." He denied having any plan, means or intent. He stated that his SI is chronic and feels safe leaving the hospital today. He identified a safety plan in which he would "call 211 or 911" and also accepted the crisis numbers and warm lines upon discharge. Patient denied having any violent thoughts/HI/hallucinations. Patient stated that he cannot return home to his niece and has funds to stay in a motel. He stated that he may also obtain a tent. Patient was interested in contacting crisis and respite (at both locations) to inquire about a referral, specifically with concerns about barriers to acceptance due to his legal history. We spoke with Bertha at the [place] location ([phone]) who requested that the referral form is faxed (she was not available to speak to the patient to obtain any information, including legal history). We also spoke with Pema at [place] ([phone]) who was informed of the patient's legal history by the patient. She requested that the referral form was faxed. Both Pema and Bertha was informed that the patient was discharging today and stated that the phone numbers to both locations could be provided to the patient so he can follow up with them after discharge. We left a vm for his niece, Divine Chacko ([phone]), informing of discharge today and requesting a call back. We also attempted to reach his sister, Claribel Baum ([phone]) and left a vm informing of discharge. This policy writer typist's call back number was provided to both individuals. A second attempt was also made to reach both of these individuals prior to discharge, however, attempts were unsuccessful. Patient will following with the following rehabs. This policy writer typist attempted to reach them as well (see notes about these attempts): - [facility]: [phone] - unable to reach, patient to follow up - [facility]: [phone] - left vm for Amita in admissions at 12:19pm - [facility]: [phone] - spoke with Alirio, special projects coordinator who took a message and transferred me to Ella, culture media laboratory assistant, and left at 12:31pm - [facility] - faxed referral packet that was completed by the patient - left for [facility] at 12:19pm to inquire about referring the patient , with no return call - CAN assessment scheduled for 01/26/18 between 10 and 1 at [facility] Patient confirmed that he still has the [facility] list and will follow up with them. A message was left for Marisabel Alicea ([phone]) and Manan Gonzales ([phone]) to follow up on the referral to [facility]. Patient confirmed that the number listed in his EMR is active ([phone]) and can be reached regarding information for [facility]. Patient was given the address and contact info for [facility] in [place] ([phone]). He was resistant to using this [facility] and would not accept information for other shelters. This policy writer typist left 's for Andrew Rhodes and Thomas Fried, both at [facility] ), requesting a call back. Responses had not been received from yesterday's attempts to reach them. Andrew returned the call and left a message stating that he was interested in referring the patient to Care due to location. This policy writer typist was unable to reach Alessandra Rhodes. This policy writer typist spoke with Thomas and informed him of the discharge plan. He was also informed that the [facility] and will continue to call after discharge. Thomas was informed of the patient's plan to go to a motel or buy a tent. He was informed that the patient reported chronic SI, no plan, means or intent, that he feels safe to discharge today. He was also informed that he denied any other safety concerns or hallucinations. Thomas did not have any concerns about discharge and was informed that the patient plans to attend his upcoming appointments with [facility]. Thomas stated that he and Andrew would assist the patient in transferring to Care. He stated that he would also inform Andrew of this call. Thomsa stated that the patient has refused IOP in the past (which he continues to refuse with this policy writer typist). Thomas will continue to explore IOP with the patient as an option. 3:55pm [place] ride was scheduled for the patient with Alim. A second call was made at 4: 36pm (Shay) and a third call was made shortly after 5pm. This policy writer typist was informed that the patient was ultimately picked up. Patient accepted the following appointments: [facility] groups on 01/23 and 01/30 at 1pm [facility] medication appointment 01/24/18 at 11:30am Patient will call Andrew at [facility] to schedule an appointment Faxed Referral(s) Referred To: [facility] Transition [facility] Documents sent: Health Summary Faxed to: Andrew Fax #: [phone] Faxed by: Cornelia Cameron LCSW Date faxed: 01/20/18 Time Faxed: [phone]
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
--- NOTE | 2018-01-20 18:21 | DISCHARGE SUMMARY REPORT-PSYCH ---
Visit Information Visit Dates/Diagnosis' Admission Date: 01/17/18 Discharge Date: 01/20/18 Reason for Admission: Suicidal ideation, polysubstance abuse, homeless. Psy Discharge Primary Diag: Bipolar disorder Psy Discharge Secondary Diag: PTSD Alcohol use disorder Cocaine use disorder Cannabis use disorder Chronic pain Hypertension Hospital Course Significant Lab Findings: Lab ALT 62 U/L 01/17/18 0703 AST 31 U/L 11/09/17 1206 AST 64 U/L H 01/17/18 0703 BUN 10 mg/dL 01/17/18 0703 Calcium 8.9 mg/dL 01/17/18 0703 Carbon Dioxide 26 mmol/L 01/17/18 0703 Chloride 100 mmol/L 01/17/18 0703 Creatinine 0.6 mg/dL L 01/17/18 0703 Estimated GFR > 60 ml/min 01/17/18 0703 Glucose 82 mg/dL 01/17/18 0703 Hemoglobin A1c 5.5 % 01/17/18 0703 Potassium 4.2 mmol/L 01/17/18 0703 Sodium 138 mmol/L 01/17/18 0703 TSH &T3 &Free T4 Intrp 1.100 uIU/mL 01/17/18 0703 Total Bilirubin 0.6 mg/dL 01/17/18 0703 Absolute Granulocytes 6.7 /CUMM H 01/17/18 0703 Hct 48.6 % 01/17/18 0703 Hgb 16.7 G/DL 01/17/18 0703 Lymphocytes % 17.1 % L 01/17/18 0703 MCH 31.8 PG H 01/17/18 0703 Plt Count 235 /CUMM 01/17/18 0703 RDW 14.6 % H 01/17/18 0703 WBC 8.9 /CUMM 01/17/18 0703 Serum Alcohol 126.0 MG/DL 01/17/18 0703 Urine Cannabis Screen > 80.00 NG/ML H 01/17/18 07 Urine Cocaine Screen > 1000 NG/ML H 01/17/18 07 EKG 01/17/18 showed sinus rhythm @ 94, probable left atrial abnormality, left anterior fascicular block, borderline R wave progression, anterior leads, incomplete RBBB and LAFB, probably no significant change since previous tracing, abnormal ECG, QT 348, QTc 436. Course Complications: None. Consultations: The patient was seen by Dr. Rivas for admission history and physical examination. Please refer to his note for additional information. Allergies: Coded Allergies: acetic acid (RASH 01/17/18) VINEGAR -> RASH Hospital Course/TX Response: The patient was monitored on the unit for safety, substance withdrawal, psychosis and mood disturbance. He participated in multimodal treatments on the unit. Home medications were continued with the exception of Wellbutrin, which was stopped, given the increased risk for seizure if he were to withdraw from alcohol while on it. Progress note from date of discharge, 01/20/18: "Case and treatment plan discussed in team meeting. Staff reports that the patient is denying suicidal ideation. CIWA scores are negative. Described as cooperative. Patient seen at 11:41 AM with Divine Cameron LCSW. Patient feels "okay, I guess." Every day patient appears more awake and alert. Reports he is still depressed at 10/10 and rates anxiety 7/10. States he feels hopeless, helpless, worthless and guilty. States he has suicidal thoughts every day but he does not identify specific plan or intent. States he has chronic suicidal ideation. Reports he might feel homicidal toward niece or might want to hit his niece if she threw any of his belongings away. We have no reason to believe that she has done so. He denies any specific plan to hurt or kill her. He is aware that if he were to act violently, he would face going to custodial. Denies auditory and visual hallucinations except reports that he did hear his name called today. Denies paranoid ideation. Reports sleep was not too good again. States appetite is actually pretty good. Reports energy is in the middle, a little better right now. Tolerating medications well. IMPRESSION: The patient has achieved maximum hospital benefit. While the patient reports chronic suicidal ideation, I do not believe he poses imminent risk of harm to himself or to others. He has had adequate observation and treatment on the inpatient unit and is appropriate for discharge at this time." Discharge HBIPS - Tobacco Use Treatment Offered Post DC Medications Offered: Script Given-See Med List Post DC Tobacco Treatment Plan: [facility] Program Appt Date: 01/25/18 Program Appt Time: 1600 - EtOH/Drug Use D/O Treatment Offered Post DC Medications Offered: Med Not Indicated for D/O Post DC EtOH/SubAbuse TX Plan: Other SubAbuse/Dual Pgm ([facility]) Program Appt Date: 01/23/18 Program Appt Time: 1300 Metabolic Screening - Screen if on a Neuroleptic Medication - Metabolic screening should include: - Blood Pressure, BMI, Glucose or Hgb A1c, & a - Lipid profile from within the past 365 days. Metabolic Screening () Not Applicable, patient not on a neuroleptic. OR () Patient on a neuroleptic(s) . Enter below results for Hemoglobin A1C, and lipid panel if obtained during the last 365 days. BMI: 31.100 Blood Pressure: 180/88 Laboratory Results From [facility] (If applicable): [x] Lab Cholesterol 130 MG/DL 11/09/17 1206 Cholesterol/HDL Ratio 2 % 11/09/17 1206 HDL Cholesterol 55 mg/dL 11/09/17 1206 Hemoglobin A1c 5.5 % 01/17/18 0703 LDL Cholesterol, Calc 48 mg/dL L 11/09/17 1206 Triglycerides 139 mg/dL 11/09/17 1206 Discharge Instructions General Discharge Information Multiple Neuroleptics: ([x]) Not Applicable OR Document below three failed attempts at monotherapy, or a plan to taper to monotherapy, or augmentation of Clozapine. () Discharge Diet Regular Discharge Activity Normal DC Disposition: Patient to pursue housing. Referrals Ordered Referrals Provider Referral 01/23/18 For Providers: [Vonda Allred [address] [place] [address] Group: 01/23/18, at 1pm with Thomas Fried Provider Referral 01/30/18 For Providers: [Vonda Allred [address] [place] [address] Group: 01/30/18, at 1pm with Thomas Fried Provider Referral 02/01/18 For Providers: [Vonda Allred [address] [place] [address] Medication appointment: 01/24/18 at 11:30am with Jeffrey Velasquez APRN Provider Referral For Groups: [Resources - Rehab Numbers] [facility]: [phone] [facility]: [phone] [facility] [phone] [facility]: [phone] [facility] in [place]: [phone] [facility] in [place]: [phone] Provider Referral For Providers: [[facility] [address] [place] [address] Patient will contact Andrew Rhodes to schedule a case management appointment. Prescriptions Stop taking the following medications: Olanzapine (Olanzapine) 10 MG TABLET ORAL 2200 Qty = 28 Continue taking these medications: Oxycodone HCl (Oxycodone HCl) 10 MG TABLET 1 Tablet ORAL EVERY SIX HOURS Comments: Last Taken:01/20/18 Time:1pm Gabapentin (Gabapentin) 600 MG TABLET 1 Tablet ORAL THREE TIMES DAILY Qty = 42 Instructions: Take 1 tab po TID. Comments: Last Taken:01/20/18 Time:1pm This prescription has been renewed Pantoprazole Sodium (Protonix) 40 MG TABLET.DR 1 Tablet ORAL DAILY Qty = 14 Instructions: Take 1 tab po daily. Comments: Last Taken:01/20/18 Time:7am This prescription has been renewed Start taking the following new medications: Cyclobenzaprine HCl (Cyclobenzaprine HCl) 10 MG TABLET 1 Tablet ORAL TWICE DAILY Qty = 28 No Refills Comments: Last Taken:01/20/18 Time:9am Nicotine (Nicotine Patch) 21 MG/24 HOUR PATCH.TD24 1 Patch On the skin DAILY Qty = 14 No Refills Comments: Last Taken:01/20/18 Time:9am Duloxetine Hydrochloride (Cymbalta) 20 MG CAPSULE.DR 2 Capsule ORAL DAILY Qty = 28 No Refills Comments: Last Taken:01/20/18 Time:9am Sennosides/Docusate Sodium (Senna Plus Tablet) 8.6 MG-50 MG TABLET 1 Tablet ORAL TWICE DAILY Qty = 28 No Refills Comments: Last Taken:01/20/18 Time:9am Multivitamin (One Daily Multivitamin) 1 EACH TABLET 1 Tablet ORAL DAILY Qty = 14 No Refills Comments: Last Taken:01/20/18 Time:9am Olanzapine (Olanzapine) 20 MG TABLET 1 Tablet ORAL AT BEDTIME Qty = 14 No Refills Comments: Last Taken:01/19/18 Time:10Pm The following medications have been changed: Old: Trazodone HCl (Trazodone HCl) 150 MG TABLET 1 Tablet ORAL AT BEDTIME Qty = 14 New: Trazodone HCl (Trazodone HCl) 150 MG TABLET 1 Tablet ORAL AT BEDTIME Qty = 14 Instructions: Take 1 tab po QHS. Comments: Last Taken:01/19/18 Time:10Pm Old: Hydrochlorothiazide (Hydrochlorothiazide) 12.5 MG CAPSULE 12.5 Milligram ORAL DAILY Qty = 14 New: Hydrochlorothiazide (Hydrochlorothiazide) 12.5 MG CAPSULE 1 Capsule ORAL DAILY Qty = 14 Instructions: Take 1 tab po daily. Comments: Last Taken:01/20/18 Time:9am Old: Prazosin HCl (Prazosin HCl) 2 MG CAPSULE 2 Milligram ORAL TWICE DAILY Qty = 1 New: Prazosin HCl (Prazosin HCl) 2 MG CAPSULE 1 Capsule ORAL AT BEDTIME Qty = 14 Comments: Last Taken:01/19/18 Time:10Pm Other Inst/Recommendations Stay away from drugs and alcohol! SeePC about high AST and abnormal EKG. Studies Pending at Discharge None. Copies To: Grace Chua APRN
--- NOTE | 2018-01-23 16:12 | SOCIAL WORKER PROG NOTE PSYCH ---
Social Work Progress Note Progress Note 3:49pm This speech writer received call from Amita with [facility] who wanted to schedule an intake with the patient. She was informed that patient discharged and stated that this speech writer could provide the patient with the phone number. A general vm was left for the patient (as the vm recording did not specify that the number belonged to the patient) requesting a call back. A call back number for this speech writer was also provided. This speech writer spoke with Manan Gonzales with [facility] ([phone]) who was calling to confirm patient's phone number. He stated that he will follow up with the patient.
--- NOTE | 2018-01-23 17:03 | SOCIAL WORKER PROG NOTE PSYCH ---
Social Work Progress Note Progress Note [facility] discharge entered Determination Status: DISCHARGE COMPLETED Thank you. You have completed your discharge for this episode of care. Member Name Member ID Member Subscriber Name Subscriber ID DEMETRIS AUGUSTIN III [id number] DEMETRIS NORTHUCHER III [id number] Related Authorization # Related Client Authorization # Discharge # Discharge Date [id number] 01/20/2018 Level of Service Type of Service Level Of Care Type of Care IP - INPATIENT/HLOC P - Mental Health I - Inpatient [facility] - Inpatient [facility]
== END 2018-01-20 16:50 | DRG 753 ==
LOC: ERH 06:38 → ERHI 19:12 → CP SOUTH 19:12 → ENTRNSPT 21:59 → EDTRNSPTSTS 22:12 → EDTRNSPT 22:12 → CP SOUTH 22:19 → CMPTRNSPT 22:19 → CP SOUTH 22:31
PROVIDERS: Pediatrics
DX: F31.9 Bipolar disorder, unspecified (principal); F43.10 Post-traumatic stress disorder, unspecified; Z72.89 Other problems related to lifestyle; F14.90 Cocaine use, unspecified, uncomplicated; F12.90 Cannabis use, unspecified, uncomplicated; R45.851 Suicidal ideations; G89.29 Other chronic pain; I10 Essential (primary) hypertension; Z59.0 Homelessness; F17.200 Nicotine dependence, unspecified, uncomplicated; Z91.018 Allergy to other foods
CPT/HCPCS: 80307; 93005; 93010; G0463; G0480; J3101; J3490